=== PATIENT | male | born 1950 | race Two or more races ===

== ENCOUNTER 2025-04-07 20:02 | Inpatient (IN) | payer OTHER, MEDICARE ==
[~2025-04-07] VITALS: Ht 177.8 cm; Wt 90.5 kg
--- NOTE | 2025-04-07 20:34 | ED.PDOC ---
History of Present Illness HPI Comments 74-year-old male who came to ER via EMS for hypotension. Patient is paraplegic. For the past few days patient has been feeling dizziness and lightheadedness. Noted that he has been pressure was low. Did not have a bowel movement for 10 days. States that was normal for him. No nausea or vomiting. Upon arrival paramedics, blood pressure was 96/64 mm Hg. Patient states he was prescribed Lasix to control his blood pressure levels. It is not taking his Lasix for the past 2 days REVIEW OF SYSTEMS: General: No fever, no chills, or fatigue HEENT: No sore throat, no earache, no congestion, no neck pain. Cardiac: No chest pain. No palpitations. Lungs: No shortness of breath, no cough. GI: No nausea, no vomiting, no diarrhea, no constipation, no abdominal pain : No dysuria, frequency, or urgency. No hematuria. Musculoskeletal: No joint pain , no joint swelling, no extremity edema. Skin: No rash, no itching. Neuro: No headache, (+) dizziness, no weakness EXAM: General: Awake, alert and oriented. No acute distress. Skin: Skin in warm, dry and intact. Appropriate color for ethnicity. HEENT: The head is normocephalic and atraumatic. Conjunctivae are clear without exudates or hemorrhage. Sclera is non-icteric. EOM are intact. No signs of nystagmus. Eyelids are normal in appearance without swelling or lesions. Oral mucosa is pink and moist Neck: The neck is supple with normal range of motion. No JVD. Cardiac: Heart rate and rhythm are normal. No murmurs, gallops, or rubs are auscultated. Respiratory: No signs of respiratory distress. Lung sounds are clear in all lobes bilaterally without rales, rhonchi, or wheezes. Abdominal: Abdomen is soft, non-tender without distention. Bowel sounds are present and normoactive in all four quadrants. Extremities: Upper and lower extremities are atraumatic in appearance without deformity or edema. Neurological: The patient is awake, alert and oriented to person, place, and time with normal speech. Speech is clear. There is no facial asymmetry. Psychiatric: Appropriate mood and affect. Good judgement and insight Chief Complaint: Low Blood Pressure Time Seen by MD: 20:34 Reviewed Notes: Nurses Notes Allergies: Coded Allergies: NO KNOWN ALLERGIES (Unverified , 04/07/25) Information Source: Patient, Emergency Med Personnel Mode of Arrival: EMS Past Medical History Past Medical History (Other): Paraplegia, wheelchair/bed-bound Surgical History: Denies all surgeries Family History Family History: Reviewed,noncontributory to illness Social History Smoker: Non-Smoker Alcohol: Denies ETOH Use Drugs: Denies Drug Use Lives In: Home Was a procedure done? Was a procedure done?: No EKG EKG : Pulse Rate (adult): 75 Cardiac Rhythm: NSR Differential Dx Considerations may include: Anemia, electrolyte imbalance, dehydration, hypotension, paraplegia X-Ray, Labs, Meds, VS Vital Signs Date Time Temp Pulse Resp B/P (MAP) Pulse Ox O2 Delivery O2 Flow Rate FiO2 04/07/25 20:34 75 04/07/25 20:09 75 04/07/25 20:03 98.9 68 16 96/68 100 98.9 Lab Test 04/07/25 21:54 Range/Units White Blood Count 10.1 4.4-10.8 10^3/uL Red Blood Count 2.13 L 4.5-5.90 10^6/uL Hemoglobin 6.8 *L 13.5-17.5 g/dL Hematocrit 20.4 L 41.0-53.0 % Mean Corpuscular Volume 95.8 80.0-100.0 fL Mean Corpuscular Hemoglobin 32.0 28.0-32.0 pg Mean Corpuscular Hemoglobin Concent 33.3 32.0-36.0 g/dL Red Cell Distribution Width 15.3 H 11.8-14.3 % Platelet Count 249 140-450 10^3/uL Mean Platelet Volume 8.4 6.9-10.8 fL Neutrophils (%) (Auto) 82.7 H 37.0-80.0 % Lymphocytes (%) (Auto) 10.7 10.0-50.0 % Monocytes (%) (Auto) 4.7 0.0-12.0 % Eosinophils (%) (Auto) 1.5 0.0-7.0 % Basophils (%) (Auto) 0.4 0.0-2.0 % Neutrophils # (Auto) 8.4 1.6-8.6 10 ^3/uL Lymphocytes # (Auto) 1.1 0.4-5.4 10 ^3/uL Monocytes # (Auto) 0.5 0-1.3 10 ^3/uL Eosinophils # (Auto) 0.2 0-0.8 10 ^3/uL Basophils # (Auto) 0 0-0.2 10 ^3/uL Nucleated Red Blood Cells 0.4 % Sodium Level 140 136-145 mmol/L Potassium Level 4.4 3.5-5.1 mmol/L Chloride Level 107 98-107 mmol/L Carbon Dioxide Level 26 20-31 mmol/L Anion Gap 7 5-15 Blood Urea Nitrogen 45 H 9-23 mg/dL Creatinine 0.69 L 0.700-1.30 mg/dL Glomerular Filtration Rate Calc 98 >90 mL/min BUN/Creatinine Ratio 65.2 H 10.0-20.0 Serum Glucose 122 H 74-106 mg/dL Calcium Level 8.3 L 8.7-10.4 mg/dL Iron Level 95 65-175 ug/dL Total Iron Binding Capacity 282 250-425 ug/dL Percent Iron Saturation 33.7 20-55 % Total Bilirubin 0.2 0.2-1.0 mg/dL Direct Bilirubin < 0.1 <0.3 mg/dL Aspartate Amino Transferase (AST) 16 13-40 U/L Alanine Aminotransferase (ALT) 12 7-40 U/L Alkaline Phosphatase 63 46-116 U/L Troponin I High Sensitivity 7 </=54 ng/L B-Type Natriuretic Peptide 32.90 0-100 pg/mL Total Protein 5.5 L 5.7-8.2 g/dL Albumin 3.1 L 3.2-4.8 g/dL Vitamin B12 Level Pending Current Medications Medications (Trade) Dose Ordered Sig/Renate Route Start Time Stop Time Status Last Admin Sodium Chloride 1,000 ml @ 1,000 mls/hr Q1H ONCE IV 04/07/25 21:45 04/07/25 22:44 DC 04/07/25 21:00 Time of 1ST Reevaluation: 20:30 Reevaluation 1ST: Unchanged Patient Education/Counseling: Need For Follow Up Family Education/Counseling: No Family Present SEPSIS Sepsis Screen Date sepsis recognized/suspect: Apr 07, 2025 Time Sepsis recognized/suspect: 2002 Recent Procedure: No On Antibiotic Therapy: No Respiratory Rate >20: No Heart Rate >90: No Temp<36 C (96.8 F) or >38.3 C: No SBP <90 or MAP <65 mmHG: No New Acute Mental Status Change: No Is the patient on CPAP, BIPAP,: No Physician Orders Electrocardigram (04/07/25 20:15) Ct Ab Pel Wo Con-No Oral Or Iv (04/07/25 21:49) Type And Screen (04/07/25 22:24) Vital Signs .PER UNIT PROTOCOL (04/07/25 22:24) Administer Blood Products UD (04/07/25 22:24) Vital Signs Date Time Temp Pulse Resp B/P (MAP) Pulse Ox O2 Delivery O2 Flow Rate FiO2 04/07/25 20:34 75 04/07/25 20:09 75 04/07/25 20:03 98.9 68 16 96/68 100 98.9 Laboratory Tests Test 04/07/25 21:54 White Blood Count 10.1 10^3/uL (4.4-10.8) Medications Medications Dose Ordered Sig/Renate Route Start Time Stop Time Status Last Admin Dose Admin Sodium Chloride 1,000 ml @ 1,000 mls/hr Q1H ONCE IV 04/07/25 21:45 04/07/25 22:44 DC 04/07/25 21:00 Departure 1 Departure Time of Disposition: 22:26 Impression: Primary Impression: Severe anemia Additional Impression: Encounter for blood transfusion Disposition: ADMITTED INPATIENT Condition: Stable Comments MDM: Blood transfusion initiated in the ED Patient admitted to hospitalist service for further treatment, evaluation and monitoring. Extensive evaluation was performed in attempt to identify or rule out: (See differential diagnosis section) The following tests were ordered, and results were reviewed by me and discussed with patient: (See diagnostic results section) The following test were independently interpreted by me: EKG I reviewed and agreed with the following test results read by other providers: CT abdomen and pelvis I reviewed the following notes from the pt's past medical encounters: N/A Additional information was gathered from interviewing the following independent historians: EMS personnel, patient's significant other at bedside Discussion of management or test interpretation with external physician/other qualified health home care assistant: N/A Addressed an acute or chronic illness that poses a threat to life or bodily function: Severe anemia requiring blood transfusion, hypotension Decision regarding hospitalization or escalation of hospital level of care: Risk and benefits of admission for further treatment of patient's condition was considered. Due to patient's current clinical condition, high risk of decline and poor outcome if discharged and need for further inpatient management and monitoring, patient will be admitted to the hospital. Drug therapy requiring intensive monitoring for toxicity: PRBCs Critical Care Note Critical Care Time?: No Stability Stability form required: No Heart Score Heart Score: Heart Score Response (Comments) Value History N/A 0 EKG N/A 0 Age N/A 0 Risk Factors N/A 0 Troponin N/A 0 Total 0 I personally scribed for DILLAN MARIN MD ([email or web address]) on 04/07/25 at 20:34. Electronically submitted by Kwaku Carrasquillo ([email or web address]). DILLAN MARIN MD Apr 07, 2025 20:34
[2025-04-07] MEDS: SODIUM CHLORIDE 0.9% 1,000 ML IV ONE (21:00)
[2025-04-07 22:16] LABS: Hematocrit 20.4 % (41.0-53.0); Mean Corpuscular Hemoglobin 32.0 pg (28.0-32.0); Mean Corpuscular Volume 95.8 fL (80.0-100.0); Nucleated Red Blood Cells % 0.4 %
[2025-04-07 22:19] LABS: Potassium 4.4 mmol/L (3.5-5.1); Sodium 140 mmol/L (136-145)
[2025-04-07 22:20] VITALS: PULSE 68; RESP 12; O2SAT 98
[2025-04-07 22:20] LABS: Anion Gap 7 (5-15); Carbon Dioxide 26 mmol/L (20-31)
[2025-04-07 22:22] LABS: Calcium 8.3 mg/dL (8.7-10.4); Chloride 107 mmol/L (98-107)
[2025-04-07 22:24] LABS: Hemoglobin 6.8 g/dL (13.5-17.5)
[2025-04-07 22:25] LABS: BUN/Creatinine Ratio 65.2 (10.0-20.0)
[2025-04-07 22:26] LABS: Blood Urea Nitrogen 45 mg/dL (9-23); Glucose 122 mg/dL (74-106)
--- NOTE | 2025-04-07 23:13 | DVH ---
Exam: CT CT AB PEL WO CON-NO ORAL OR IV History: Constipation.. No bowel movement x9 days Comparison Study: None TECHNIQUE: Multidetector CT of the abdomen and pelvis was performed from lung bases to pubic symphysis. Imaging was performed without IV contrast. Axial, coronal, and sagittal multiplanar reformats were obtained from the axial data set by the technologist. RADIATION DOSE: CTDI vol 18.1 mGy. DLP 944.2 mGy.cm Findings: Limited evaluation of the solid organs in the absence of IV contrast. Lungs: Basilar atelectasis/scarring. Liver: Unremarkable. Spleen: Unremarkable. Pancreas: Unremarkable. Gallbladder: Unremarkable. Adrenals: Unremarkable Kidneys: The left kidney is absent. The right kidney is unremarkable without hydronephrosis. Pelvic Viscera: Unremarkable. Vasculature: Atherosclerotic aortoiliac calcification. Retroperitoneum: Unremarkable. Bowel: There is fecal distention of the rectum with mild stranding about the inferior rectum. There is no bowel obstruction. The appendix is normal. Musculoskeletal: Degenerative changes of the osseous structures. Osteopenia. Soft tissues: There is stranding within the subcutaneous tissues overlying the rectum. There is mild subcutaneous stranding along the lateral aspect of the upper extremities. Impression: 1. Findings suggestive of fecal impaction with possible early stercoral colitis in the appropriate clinical setting. 2. Soft tissue stranding as above, infectious/ inflammatory process cannot be excluded in the appropriate clinical setting. 3. Additional findings as detailed.
[2025-04-07] MEDS: LACTULOSE 20Gm/30ML SOLN PO ONE (23:30)
[2025-04-07] MEDS ORDERED: NITROGLYCERIN 0.4 MG SL TAB SL PRN (23:30)
[2025-04-07] MEDS: THIAMINE HCL 100 MG TAB PO ONE (23:30)
[2025-04-07] MEDS ORDERED: SODIUM CHLORIDE 0.9% 2,200 ML IV ONE (23:30)
--- NOTE | 2025-04-07 23:38 | DVHHPRES ---
History of Present Illness Resident Creating Document: GABY BRADEN History of Present Illness Shaan Dupont, 74-year-old male with a previous history of paraplegia, significant alcohol abuse, chronic leg and back pain, cervical spinal surgery, recent history of UTI (resolved) presented to the to the ER after feeling hot flashes and his blood pressure at home was ranging in 60s/30s. According to the patient's spouse" he is not like normal, something is off". However, patient is A&O x3. The patient also reports having a wound in the right buttock. The patient did not have a bowel movement since last 10 days, the reports lactulose, MiraLax help to some extent. The patient receive home health services, spinal surgery team arranged by [facility]. Now, the is the primary caregiver. He denies any chest pain, shortness of breath, fever, urinary symptoms or any other complaints Past surgical history: Cervical spine surgery Home medications: Hydrocodone, baclofen, ibuprofen Drug allergies: None Smoking: Quit many years ago. Previously taken 2 packs per day for many years Alcohol: 2-3 beers per day Drug abuse: None Code status: DNI, DNR Review of Systems Allergies: Coded Allergies: NO KNOWN ALLERGIES (Unverified , 04/07/25) Exam Vital Signs Vital Signs Date Time Temp Pulse Resp B/P (MAP) Pulse Ox O2 Delivery O2 Flow Rate FiO2 04/07/25 20:34 75 04/07/25 20:03 98.9 16 96/68 100 98.9 Exam Pt is lying on bed General Appearance: Alert, Oriented X3, Cooperative, Mild distress HEENT: Atraumatic, Mucous membranes moist/pink Respiratory: Clear to auscultation, Normal air movement, No added sounds Cardiovascular: Regular rate, Normal S1, Normal S2, No murmurs Abdominal/ : Active bowel sounds, Soft, no distention, no tenderness Rectal exam: Patient declined Extremities: No edema, Normal pulses, No tenderness/swelling Skin: Ulcer at the right buttock Neuro: Normal speech, sensorimotor deficits none Psych/Mental Status: Mental status NL, Mood NL Nurse was there as pulverizing and sifting operator during examination Labs/Xrays Labs Test 04/07/25 21:54 Range/Units White Blood Count 10.1 4.4-10.8 10^3/uL Red Blood Count 2.13 L 4.5-5.90 10^6/uL Hemoglobin 6.8 *L 13.5-17.5 g/dL Hematocrit 20.4 L 41.0-53.0 % Mean Corpuscular Volume 95.8 80.0-100.0 fL Mean Corpuscular Hemoglobin 32.0 28.0-32.0 pg Mean Corpuscular Hemoglobin Concent 33.3 32.0-36.0 g/dL Red Cell Distribution Width 15.3 H 11.8-14.3 % Platelet Count 249 140-450 10^3/uL Mean Platelet Volume 8.4 6.9-10.8 fL Neutrophils (%) (Auto) 82.7 H 37.0-80.0 % Lymphocytes (%) (Auto) 10.7 10.0-50.0 % Monocytes (%) (Auto) 4.7 0.0-12.0 % Eosinophils (%) (Auto) 1.5 0.0-7.0 % Basophils (%) (Auto) 0.4 0.0-2.0 % Neutrophils # (Auto) 8.4 1.6-8.6 10 ^3/uL Lymphocytes # (Auto) 1.1 0.4-5.4 10 ^3/uL Monocytes # (Auto) 0.5 0-1.3 10 ^3/uL Eosinophils # (Auto) 0.2 0-0.8 10 ^3/uL Basophils # (Auto) 0 0-0.2 10 ^3/uL Nucleated Red Blood Cells 0.4 % Sodium Level 140 136-145 mmol/L Potassium Level 4.4 3.5-5.1 mmol/L Chloride Level 107 98-107 mmol/L Carbon Dioxide Level 26 20-31 mmol/L Anion Gap 7 5-15 Blood Urea Nitrogen 45 H 9-23 mg/dL Creatinine 0.69 L 0.700-1.30 mg/dL Glomerular Filtration Rate Calc 98 >90 mL/min BUN/Creatinine Ratio 65.2 H 10.0-20.0 Serum Glucose 122 H 74-106 mg/dL Calcium Level 8.3 L 8.7-10.4 mg/dL Troponin I High Sensitivity 7 </=54 ng/L B-Type Natriuretic Peptide 32.90 0-100 pg/mL SEPSIS Sepsis Screen Date sepsis recognized/suspect: Apr 07, 2025 Time Sepsis recognized/suspect: 2002 Recent Procedure: No On Antibiotic Therapy: No Respiratory Rate >20: No Heart Rate >90: No Temp<36 C (96.8 F) or >38.3 C: No SBP <90 or MAP <65 mmHG: No New Acute Mental Status Change: No Is the patient on CPAP, BIPAP,: No Physician Orders Electrocardigram (04/07/25 20:15) Ct Ab Pel Wo Con-No Oral Or Iv (04/07/25 21:49) Packedcells -Active Bleeding (04/07/25 22:24) Type And Screen (04/07/25 22:24) Vital Signs .PER UNIT PROTOCOL (04/07/25 22:24) Administer Blood Products UD (04/07/25 22:24) Vital Signs Date Time Temp Pulse Resp B/P (MAP) Pulse Ox O2 Delivery O2 Flow Rate FiO2 04/07/25 20:34 75 04/07/25 20:09 75 04/07/25 20:03 98.9 68 16 96/68 100 98.9 Laboratory Tests Test 04/07/25 21:54 White Blood Count 10.1 10^3/uL (4.4-10.8) Medications Medications Dose Ordered Sig/Renate Route Start Time Stop Time Status Last Admin Dose Admin Sodium Chloride 1,000 ml @ 1,000 mls/hr Q1H ONCE IV 04/07/25 21:45 04/07/25 22:44 DC 04/07/25 21:00 1,000 MLS/HR Assessment/Plan Assessment/Plan Septic shock secondary to acute colitis Constipation -abdomen CT: Colitis, impacted stool -IV bolus fluid -Levophed (map below 65) -IV ceftriaxone and IV metronidazole -Lactulose given for constipation -manual disimpaction declined by the patient -consider enema CXR ordered, pending Acute severe anemia (hemoglobin 6.8) likely due to GI blood loss? -per rectal exam declined -blood transfusion -IV fluid -monitor H&H -Consider GI consult Ulcer in the gluteal region -wound consult -wound culture -continue IV antibiotics GI prophylaxis: Pantoprazole DVT prophylaxis: lovenox held due to anemia, SCDs Diet: Regular Goals of care discussed with the patient for more than 27 minutes: Full code status Case discussed with Dr. Mcqueen, patient and RN Plan discussed with: Patient, Spouse Date of Service: Apr 07, 2025 Billing Provider: ROLY MCQUEEN MD Common Visit Codes: 63209-ZSTDNLT INP/OBS CARE (HIGH) Secondary Visit Codes: [id number] CARE PLAN 30 MINUTES GABY BRADEN RESIDENT Apr 07, 2025 23:38 CYRIL PANIAGUA RESIDENT Apr 08, 2025 02:03 ROLY MCQUEEN MD Apr 08, 2025 11:42
[2025-04-07] MEDS: NOREPINEPHRINE 8 MG/250ML KIT 250 ML IV ONE (23:54)
[2025-04-08] VITALS (54 sets, daily range): BP systolic 77–137; BP diastolic 44–70; PULSE 60–91; RESP 11–24; TEMP 97.7–98.7; O2SAT 75–100
[2025-04-08] MEDS: SODIUM CHLORIDE 0.9% 1,000 ML IV ONE
[2025-04-08 00:18] LABS: Iron 95.0 ug/dL (65-175)
[2025-04-08 00:21] LABS: Total Iron Binding Capacity 282.0 ug/dL (250-425)
[2025-04-08 00:22] LABS: Alanine Aminotransferase 12 U/L (7-40); Albumin 3.1 g/dL (3.2-4.8); Alkaline Phosphatase 63 U/L (46-116); Bilirubin, Direct < 0.1 mg/dL (<0.3); Bilirubin, Total 0.2 mg/dL (0.2-1.0); Total Protein 5.5 g/dL (5.7-8.2)
[2025-04-08 00:24] LABS: Amphetamine Screen, Urine Neg (NEGATIVE); Opiate Scree,Urine Pos (NEGATIVE)
[2025-04-08 00:28] LABS: Urine Protein, UAD TRACE (Negative); Urine WBC Clumps PRESENT /hpf (None Seen)
[2025-04-08 00:39] LABS: Barbiturate Scree,Urine Neg (NEGATIVE); Benzodiazephine Screen, Urine Neg (NEGATIVE); Cannabinoid Screen, Urine Neg (NEGATIVE); Cocaine Screen, Urine Neg (NEGATIVE); Phencyclidine Screen, Urine Neg (NEGATIVE)
[2025-04-08 00:44] LABS: Hematocrit 20.6 % (41.0-53.0)
[2025-04-08] MEDS: NOREPINEPHRINE 8 MG/250ML KIT 250 ML IV SCH (00:53)
[2025-04-08 00:54] LABS: Hemoglobin 6.9 g/dL (13.5-17.5)
[2025-04-08] MEDS: MORPHINE SULFATE INJ 2 MG/ml SYRG IV PRN (01:38)
--- NOTE | 2025-04-08 05:22 | DVH ---
CHEST RADIOGRAPH Indication: Sepsis Technique: Single frontal view of the chest was obtained COMPARISON: None FINDINGS: Lines and Tubes: None Lungs: Increased interstitial prominence. This may represent pulmonary vascular congestion and/or viral pneumonia. Pleura: No effusion. No pneumothorax. Cardiomediastinal contours: Unremarkable Bones: Unremarkable IMPRESSION: Increased interstitial prominence. This may represent pulmonary vascular congestion and/or viral pneumonia.
[2025-04-08 08:46] LABS: Hematocrit 24.3 % (41.0-53.0); Hemoglobin 8.2 g/dL (13.5-17.5)
--- NOTE | 2025-04-08 08:57 | ECG ---
[facility] Test Date: 2025-04-07 Test Time: 20:09:03 Pat Name: AGNES RAMIREZ Department: ED Room: 0216T Gender: M Client Development Consultant: MARIO : 1950 Requested By: EMERGENCY EMERGENCY Order Number: [id number] Reading MD: Javier Chambers Measurements Intervals [place] Rate: 75 P: 71 [place]: 58 QRS: 23 QRSD: 95 T: -14 QT: 371 QTc: 415 Interpretive Statements Sinus rhythm Short [place] interval Posterior infarct, old Borderline repolarization abnormality Electronically Signed On 04-09-2025 17:57:07 PST by Javier Chambers Please click the below link to view image of tracing.
[2025-04-08 09:40] LABS: INR 0.98 (0.9-1.15); Partial Thromboplastin Time 24.5 SEC (24.5-34.5); Prothrombin Time 10.4 sec (9.3-11.8)
[2025-04-08] MEDS: LACTULOSE 20Gm/30ML SOLN PO SCH ×2 (10:00→22:51)
[2025-04-08] MEDS: HYDROcodone-ACET 10/325MG TAB PO ONE (10:06)
[2025-04-08] MEDS: CYANOCOBALAMIN 500 MCG TAB PO SCH (10:06)
[2025-04-08] MEDS: PANTOPRAZOLE 40 MG/10 ML VIAL INJ IV SCH (10:38)
[2025-04-08] MEDS: PIPERACILLIN-TAZOB 3.375GM 100 ML IV ONE (13:45)
[2025-04-08] MEDS: SODIUM CHLORIDE 0.9% 500 ML IV ONE ×2 (14:45→16:45)
--- NOTE | 2025-04-08 15:48 | DVHCONRES ---
Date Seen: Apr 08, 2025 Resident Creating Document: WHITNEY BORRERO History of Present Illness Shaan Dupont, 74-year-old male with a previous history of paraplegia, significant alcohol abuse, chronic leg and back pain, cervical spinal surgery, recent history of UTI (resolved) presented to the to the ER after feeling hot flashes and his blood pressure at home was ranging in 60s/30s. According to the patient's spouse" he is not like normal, something is off". However, patient is A&O x3. The patient also reports having a wound in the right buttock. The patient did not have a bowel movement since last 10 days, the reports lactulose, MiraLax help to some extent. The patient receive home health services, [facility] Now, the is the primary caregiver. He denies any chest pain, shortness of breath, fever, urinary symptoms or any other complaints Past surgical history: Cervical spine surgery Home medications: Hydrocodone, baclofen, ibuprofen Drug allergies: None Smoking: Quit many years ago. Previously taken 2 packs per day for many years Alcohol: 2-3 beers per day Drug abuse: None Code status: DNI, DNR Patient seen and examined, reports taking ibuprofen. Counseled regarding avoidance of ibuprofen. Upper endoscopy tomorrow. Family History: Chronic obstructive pulmonary disease Allergies: Coded Allergies: NO KNOWN ALLERGIES (Unverified , 04/07/25) Current Medications Current Medications Medications (Trade) Dose Ordered Sig/Renate Route PRN Reason Start Time Stop Time Status Last Admin Nitroglycerin (Ntrostat Sublingual) 0.4 mg Q5MINP PRN SL FOR CHEST PAIN 04/07/25 23:30 04/08/25 10:39 DC Morphine Sulfate 2 mg Q30M PRN IV FOR CHEST PAIN 04/07/25 23:30 04/08/25 10:39 DC 04/08/25 05:47 Lactulose 30 ml DAILY PO 04/08/25 10:00 Ceftriaxone Sodium 50 ml @ 100 mls/hr DAILY@2100 IV 04/08/25 21:00 04/08/25 10:39 DC Metronidazole 100 ml @ 100 mls/hr Q8HR IV 04/08/25 06:00 04/08/25 10:39 DC 04/08/25 06:35 Cyanocobalamin (Vitamin B-12) 500 mcg DAILY PO 04/08/25 10:00 04/08/25 10:06 Norepinephrine Bitartrate 250 ml @ 3.75 mls/hr Q24H IV 04/08/25 00:45 04/08/25 00:53 Pantoprazole Sodium (Protonix) 40 mg BID IV 04/08/25 10:00 04/08/25 10:38 Piperacillin Sod/ Tazobactam Sod 100 ml @ 25 mls/hr Q8HR IV 04/08/25 22:00 Vital Signs Vital Signs Date Time Temp Pulse Resp B/P (MAP) Pulse Ox O2 Delivery O2 Flow Rate FiO2 04/08/25 15:15 64 15 114/63 (80) 100 04/08/25 15:07 Nasal Cannula* 2 28 04/08/25 12:15 98.1 98.1 Physical Exam Patient lying in bed, in no acute distress General: Well-built, afebrile, palor, mucosae are moist Cardiovascular: Regular S1 and S2. No murmurs, gallops or rubs. No JVD elevation. No pedal edema Respiratory: Normal B/L air entry on room air. Clear lung sounds on auscultation Abdomen: Soft, nontender, nondistended, normoactive bowel sounds, no rebound tenderness, no organomegaly, no masses Genitourinary: Deferred Psych/Mental Status: A/Ox3 Labs/Diagnostic Data Labs Test 04/08/25 08:31 04/08/25 00:00 04/07/25 23:45 04/07/25 21:54 Range/Units Hemoglobin 8.2 #L 13.5-17.5 g/dL Hematocrit 24.3 #L 41.0-53.0 % Prothrombin Time 10.4 9.3-11.8 sec Prothrombin Time INR 0.98 0.9-1.15 Activated Partial Thromboplast Time 24.5 24.5-34.5 SEC Ferritin 30.1 22-322 ng/mL Folic Acid 9.88 >5.38 ng/mL Lactic Acid Level 1.1 0.4-2.0 mmol/L Plasma/Serum Blood Alcohol < 3.0 <10 mg/dL Urine Color Colorless Yellow Urine Clarity Turbid H Clear Urine pH 5.5 5.0-9.0 Urine Specific [place] 1.021 1.001-1.035 Urine Protein Trace H Negative Urine Ketones Negative Negative Urine Blood Negative Negative /uL Urine Nitrite 2+ H Negative Urine Bilirubin Negative Negative Urine Urobilinogen Normal Negative mg/dL Urine Leukocyte Esterase 2+ Negative /uL Urine RBC 22 0 - 3 /hpf Urine WBC Clumps Present None Seen /hpf Urine Microscopic WBC 483 H 0-3 /HPF Urine Squamous Epithelial Cells Few <5 /hpf Urine Bacteria Many H None Seen /hpf Urine Glucose Normal Normal mg/dL Urine Opiates Screen Pos NEGATIVE Urine Fentanyl Screen Neg NEGATIVE Urine Barbiturates Screen Neg NEGATIVE Urine Phencyclidine Screen Neg NEGATIVE Urine Amphetamines Screen Neg NEGATIVE Urine Benzodiazepines Screen Neg NEGATIVE Urine Cocaine Screen Neg NEGATIVE Urine Cannabinoids Screen Neg NEGATIVE White Blood Count 10.1 4.4-10.8 10^3/uL Red Blood Count 2.13 L 4.5-5.90 10^6/uL Mean Corpuscular Volume 95.8 80.0-100.0 fL Mean Corpuscular Hemoglobin 32.0 28.0-32.0 pg Mean Corpuscular Hemoglobin Concent 33.3 32.0-36.0 g/dL Red Cell Distribution Width 15.3 H 11.8-14.3 % Platelet Count 249 140-450 10^3/uL Mean Platelet Volume 8.4 6.9-10.8 fL Neutrophils (%) (Auto) 82.7 H 37.0-80.0 % Lymphocytes (%) (Auto) 10.7 10.0-50.0 % Monocytes (%) (Auto) 4.7 0.0-12.0 % Eosinophils (%) (Auto) 1.5 0.0-7.0 % Basophils (%) (Auto) 0.4 0.0-2.0 % Neutrophils # (Auto) 8.4 1.6-8.6 10 ^3/uL Lymphocytes # (Auto) 1.1 0.4-5.4 10 ^3/uL Monocytes # (Auto) 0.5 0-1.3 10 ^3/uL Eosinophils # (Auto) 0.2 0-0.8 10 ^3/uL Basophils # (Auto) 0 0-0.2 10 ^3/uL Nucleated Red Blood Cells 0.4 % Sodium Level 140 136-145 mmol/L Potassium Level 4.4 3.5-5.1 mmol/L Chloride Level 107 98-107 mmol/L Carbon Dioxide Level 26 20-31 mmol/L Anion Gap 7 5-15 Blood Urea Nitrogen 45 H 9-23 mg/dL Creatinine 0.69 L 0.700-1.30 mg/dL Glomerular Filtration Rate Calc 98 >90 mL/min BUN/Creatinine Ratio 65.2 H 10.0-20.0 Serum Glucose 122 H 74-106 mg/dL Calcium Level 8.3 L 8.7-10.4 mg/dL Iron Level 95 65-175 ug/dL Total Iron Binding Capacity 282 250-425 ug/dL Percent Iron Saturation 33.7 20-55 % Total Bilirubin 0.2 0.2-1.0 mg/dL Direct Bilirubin < 0.1 <0.3 mg/dL Aspartate Amino Transferase (AST) 16 13-40 U/L Alanine Aminotransferase (ALT) 12 7-40 U/L Alkaline Phosphatase 63 46-116 U/L Troponin I High Sensitivity 7 </=54 ng/L B-Type Natriuretic Peptide 32.90 0-100 pg/mL Total Protein 5.5 L 5.7-8.2 g/dL Albumin 3.1 L 3.2-4.8 g/dL Vitamin B12 Level 269 211-911 pg/mL Assessment Septic shock likely secondary to colitis Fecal impaction Likely peptic ulcer disease Acute blood loss anemia likely secondary to above status post 1 RBC transfusion Acute urinary tract infection Alcohol dependence Protein malnutrition CT abdomen shows findings suggestive of fecal infection with possible early stercoral colitis in an appropriate clinical setting Soft tissue stranding as above. Plan/Recommendation Given that the patient never had EGD/colonoscopy, anemia requiring blood loss, elevated BUN a out of proportion to creatinine, we will schedule the patient for upper EGD 04/09/2025. NPO after midnight. Continue IV fluids, IV Zosyn, IV pressors Monitor H&H twice daily Fleet enema ordered, we will consider fecal disimpaction if enema does not work Lactulose increased to 30 mL b.i.d. Continue Protonix 40 mg IV b.i.d. along with Carafate Avoid NSAIDs/ketorolac Plan discussed with patient in which all questions have been answered Case discussed with Dr. Beverly Plan discussed with: Patient WHITNEY BORRERO RESIDENT Apr 08, 2025 15:48
[2025-04-08] MEDS: FLEET ENEMA(ADULT) 135 ML PR ONE (17:04)
[2025-04-08] MEDS: SUCRALFATE 1 GM/10 ML ORAL SUSP PO SCH (17:12)
--- NOTE | 2025-04-08 18:21 | DVHPNRES ---
Progress Note Date Seen: Apr 08, 2025 Resident Creating Document: LEA HENDERSON RESIDENT Medical Necessity Reason Pt with a Central, PICC or Fol: No Subjective Review of Systems Shaan Dupont, 74-year-old male with a previous history of paraplegia, significant alcohol abuse, chronic leg and back pain, cervical spinal surgery, recent history of UTI (resolved) presented to the to the ER after feeling hot flashes and his blood pressure at home was ranging in 60s/30s. According to the patient's spouse" he is not like normal, something is off". However, patient is A&O x3. The patient also reports having a wound in the right buttock. The patient did not have a bowel movement since last 10 days, the reports lactulose, MiraLax help to some extent. The patient receive home health services, spinal surgery team arranged by [facility]. Now, the is the primary caregiver. He denies any chest pain, shortness of breath, fever, urinary symptoms or any other complaints. As per patient patient had hot flashes, was feeling disoriented, states he did not lose consciousness and he did have trouble urinating since 2 days. Patient also was constipated since 9 days. Past surgical history: Cervical spine surgery Home medications: Hydrocodone, baclofen, ibuprofen Drug allergies: None Smoking: Quit many years ago. Previously taken 2 packs per day for many years Alcohol: 2-3 beers per day Drug abuse: None Code status: DNI, not DNR 04/08/2025: patient seen in the ER. Patient is on 2 L oxygen, denies any home oxygen. Patient today complains of generalized pain. Urinalysis showed positive for UTI. Urine culture ordered. GI consult was placed, monitored H&H, started IV Zosyn, patient was weaned off Levophed. Patient can be downgraded to tele. Podiatry consult placed for right foot toe ulcer. Patient is DNI only. I signed the paperwork for DNA not DNR. Objective vital signs Vital Sign Date Time Temp Pulse Resp B/P (MAP) Pulse Ox O2 Delivery O2 Flow Rate FiO2 04/08/25 17:15 71 13 100 04/08/25 17:07 Nasal Cannula* 2 28 04/08/25 16:00 98.1 98.1 Total Intake and Output 04/07/25 04/07/2504/08/25 15:00 23:00 07:00 Intake Total 1314.312 ml Balance 1314.312 ml medications Current Medications Medications Dose Ordered Sig/Renate Route Start Time Stop Time Status Last Admin Dose Admin Cyanocobalamin 500 mcg DAILY PO 04/08/25 10:00 04/08/25 10:06 500 MCG Norepinephrine Bitartrate 250 ml @ 3.75 mls/hr Q24H IV 04/08/25 00:45 04/08/25 00:53 7.5 MLS/HR Pantoprazole Sodium 40 mg BID IV 04/08/25 10:00 04/08/25 10:38 40 MG Piperacillin Sod/ Tazobactam Sod 100 ml @ 25 mls/hr Q8HR IV 04/08/25 22:00 Lactulose 30 ml BID PO 04/08/25 22:00 Sucralfate 1 gm TID@0600,1130,2200 PO 04/08/25 15:45 04/08/25 17:12 1 GM Acetaminophen 650 mg Q6HP PRN PO 04/08/25 16:45 Examination General: Patient alert and oriented in person, place and time. Patient following commands. HEENT: Normocephalic, atraumatic, moist mucous membranes Respiratory/pulmonary: Clear lungs bilaterally, vesicular murmurs present in almost all lung alfaro, no associated crackles or wheezes. Cardiovascular: Normal heart sounds S1 and S2 with no associated murmurs Abdomen: rectal exam declined, no tenderness on palpation of abdomen. Extremities: There is no peripheral edema present at the lower extremities. Peripheral Pulses: 3+ Radial (R). 3+ Radial (L). 3+ Dorsalis pedis (R). 3+ Dorsalis pedis(L) Skin: sacral ulcer stage 3-4 present on admission, right big toe ulcer Neurological: Paraplegic laboratory and microbiology Laboratory Tests 04/08/25 08:31 04/07/25 21:54 Test 04/07/25 21:54 Range/Units Serum Glucose 122 H 74-106 mg/dL Problem List/Assessment/Plan Problem List/Assessment/Plan Septic shock likely due to UTI - IV bolus fluids given - discontinued Levophed - IV Zosyn Pneumonia Gram-positive vs Gram-negative - CXR ordered showed Increased interstitial prominence. This may represent pulmonary vascular congestion and/or viral pneumonia. - IV Zosyn Complicated UTI - urinalysis positive for UTI - urine culture ordered - IV Zosyn Acute severe anemia possible GI bleed Slow transit Constipation - abdomen CT: Colitis, impacted stool -per rectal exam declined -blood transfusion 1 PRBC given -IV fluid - monitor H&H - GI consulted possible GI bleed - possible EGD tomorrow - Fleet enema ordered - Lactulose given for constipation - manual disimpaction declined by the patient History of for paraplegia Ulcer in the gluteal region right foot toe ulcer - podiatry consult placed -wound consult -wound culture -continue IV antibiotics Alcohol abuse disorder - patient counseled on cessation of alcohol for more than 18 minutes. GI prophylaxis: Pantoprazole DVT prophylaxis: lovenox held due to anemia, SCDs Diet: Regular Goals of care discussed with the patient for more than 29 minutes: Full code status Case discussed with Dr. Uribe, patient and RN Plan discussed with: Patient, Spouse My Orders My Orders Orders - LEA HENDERSON Procedure Category Date Status Time * [facility] Clinical Manager CONS 04/08/25 Transmitted 06:39 *Podiatry Consult CONS 04/08/25 Transmitted [facility]) 12:25 * Tank Driver CONS 04/08/25 Transmitted Consult Date of Service: Apr 08, 2025 Billing Provider: PAOLA URIBE MD Common Visit Codes: [id number] INP/OBS CARE(HIGH) LEA HENDERSON Apr 08, 2025 18:20 PAOLA URIBE MD Apr 08, 2025 21:44
[2025-04-08 18:45] LABS: Hemoglobin 7.8 g/dL (13.5-17.5)
[2025-04-08 18:47] LABS: Hematocrit 22.3 % (41.0-53.0)
[2025-04-08 19:10] LABS: COVID19 ANTIGEN SOFIA FIA NEGATIVE (NEGATIVE)
[2025-04-08] MEDS: PIPERACILLIN-TAZOB 3.375GM 100 ML IV SCH (22:00)
[2025-04-09] VITALS (8 sets, daily range): BP systolic 108–115; BP diastolic 60–70; PULSE 61–67; RESP 11–19; TEMP 98.3–98.8; O2SAT 96–100
[2025-04-09 05:27] LABS: Hemoglobin 7.5 g/dL (13.5-17.5)
[2025-04-09 05:30] LABS: Hematocrit 21.2 % (41.0-53.0); Mean Corpuscular Hemoglobin 33.7 pg (28.0-32.0); Mean Corpuscular Volume 95.4 fL (80.0-100.0); Nucleated Red Blood Cells % 0.0 %
[2025-04-09] MEDS ORDERED: SODIUM CHLORIDE LOCK 10 ML ONE (10:19)
[2025-04-09 10:55] LABS: Alanine Aminotransferase 10 U/L (7-40); Albumin 3.3 g/dL (3.2-4.8); Alkaline Phosphatase 65 U/L (46-116); Anion Gap 9 (5-15); BUN/Creatinine Ratio 42.9 (10.0-20.0); Carbon Dioxide 25 mmol/L (20-31); Glucose 103 mg/dL (74-106); Potassium 4.1 mmol/L (3.5-5.1); Sodium 145 mmol/L (136-145); Total Protein 5.7 g/dL (5.7-8.2)
[2025-04-09 10:56] LABS: Bilirubin, Total 0.3 mg/dL (0.2-1.0); Blood Urea Nitrogen 24 mg/dL (9-23); Calcium 8.6 mg/dL (8.7-10.4); Chloride 111 mmol/L (98-107)
[2025-04-09] MEDS: LIDOCAINE VISCOUS 2% 15ML UD ONE (15:48)
[2025-04-09] MEDS: MIDAZOLAM HCL 5 MG/ML-1ML VIAL ONE (15:48)
[2025-04-09] MEDS: fentaNYL CITRATE 100 MCG/2 ML VL ONE (15:48)
[2025-04-09] MEDS: diphenhydrAMINE HCL 50 MG/1 ML VL ONE (15:48)
--- NOTE | 2025-04-09 16:02 | DVHOP2 ---
Operative Report DATE OF OPERATION: 04/09/25 PROCEDURE: Upper Endoscopy with biopsy. PREOPERATIVE INDICATION: The patient is a 74 -year-old male undergoing endoscopy for anemia and occult positive stool POSTOPERATIVE DIAGNOSES: 1. Moderate linear antral gastritis with pre-pyloric antral gastric erosions and some scarring from previous ulcer disease 2. [id number] duodenitis with duodenal erosions otherwise normal examination up to the 2nd and 3rd part of the duodenum PROCEDURE PERFORMED BY: David Beverly GI NURSE: Shahla SCOPE: Olympus videoendoscope. ASA CLASS: 3 PREOPERATIVE MEDICATIONS: Versed 2 mg, Fentanyl 50 mcg, Benadryl 50 mg I administered moderate sedation throughout this _8_ minutes procedure. An independent trained observer pushed medications at my direction, and monitored the patient's level of consciousness and physiological status throughout. PROCEDURE IN DETAIL: After obtaining an informed consent, the patient was placed on left lateral decubitus position. The patient was then sedated with the above medications. A bite block was placed between his teeth. The endoscope was then passed through the oropharynx, into the esophagus, and through the stomach and pylorus up to the second and third part of the duodenum. The endoscope was then withdrawn. The 2nd and 3rd part of the duodenum were normal and the duodenal bulb and postbulbar area showed moderate duodenitis There were multiple superficial duodenal erosions and tiny ulcers. Duodenal biopsies were obtained The pre-pyloric area antrum and body showed moderate linear antral gastritis with some pre-pyloric antral gastric erosions and scarring from previous ulcer disease On retroflexion the fundus cardia and angularis were normal. There was no fresh or old blood in the upper GI tract. Gastric biopsies were obtained. The endoscope was then withdrawn into the distal esophagus where he had a slightly irregular squamocolumnar junction but no significant erosive esophagitis The remaining distal and proximal esophagus and oropharynx were unremarkable The patient tolerated the procedure well without difficulty. COMPLICATIONS : None SPECIMENS: Duodenal biopsies Gastric biopsies DISPOSITION: Transfer back to the floor Stable PLAN: 1. Await for biopsy result 2. Will place pt on Protonix 40 mg bid IV 3. Carafate suspension 1 g p.o. 4 times a day 3. DC aspirin NSAIDs smoking alcohol 5. Resume GI soft diet advance as tolerated 6. Monitor labs DAVID BEVERLY MD Apr 09, 2025 16:02
[2025-04-09] MEDS: SUCRALFATE 1 GM/10 ML ORAL SUSP PO SCH (17:04)
--- NOTE | 2025-04-09 17:37 | DVHPNRES ---
Progress Note Date Seen: Apr 09, 2025 Resident Creating Document: LEA HENDERSON RESIDENT Medical Necessity Reason Pt with a Central, PICC or Fol: No Subjective Review of Systems Shaan Dupont, 74-year-old male with a previous history of paraplegia, significant alcohol abuse, chronic leg and back pain, cervical spinal surgery, recent history of UTI (resolved) presented to the to the ER after feeling hot flashes and his blood pressure at home was ranging in 60s/30s. According to the patient's spouse" he is not like normal, something is off". However, patient is A&O x3. The patient also reports having a wound in the right buttock. The patient did not have a bowel movement since last 10 days, the reports lactulose, MiraLax help to some extent. The patient receive home health services, spinal surgery team arranged by [facility]. Now, the is the primary caregiver. He denies any chest pain, shortness of breath, fever, urinary symptoms or any other complaints. As per patient patient had hot flashes, was feeling disoriented, states he did not lose consciousness and he did have trouble urinating since 2 days. Patient also was constipated since 9 days. Past surgical history: Cervical spine surgery Home medications: Hydrocodone, baclofen, ibuprofen Drug allergies: None Smoking: Quit many years ago. Previously taken 2 packs per day for many years Alcohol: 2-3 beers per day Drug abuse: None Code status: DNI, not DNR 04/08/2025: patient seen in the ER. Patient is on 2 L oxygen, denies any home oxygen. Patient today complains of generalized pain. Urinalysis showed positive for UTI. Urine culture ordered. GI consult was placed, monitored H&H, started IV Zosyn, patient was weaned off Levophed. Patient can be downgraded to tele. Podiatry consult placed for right foot toe ulcer. Patient is DNI only. I signed the paperwork for DNA not DNR. 04/09/25: Patient seen in the ER. Patient is on 2 L oxygen. patient today complained of seeing hazy colors. Feeling confused. Patient had a dark tarry stool with Fleet enema. EGD done today which showed 1. Moderate linear antral gastritis with pre-pyloric antral gastric erosions and some scarring from previous ulcer disease . [id number] duodenitis with duodenal erosions otherwise normal examination up to the 2nd and 3rd part of the duodenum. Monitoring H&H Objective vital signs Vital Sign Date Time Temp Pulse Resp B/P (MAP) Pulse Ox O2 Delivery O2 Flow Rate FiO2 04/09/25 16:33 Nasal Cannula 2.0 100 04/09/25 16:33 61 12 105/53 (70) 100 04/09/25 16:04 97.9 97.9 Total Intake and Output 04/08/25 04/08/25 04/09/25 14:59 22:59 06:59 Intake Total 22.50 ml 2600 ml 100 ml Output Total 750 ml Balance 22.50 ml 1850 ml 100 ml medications Current Medications Medications Dose Ordered Sig/Renate Route Start Time Stop Time Status Last Admin Dose Admin Cyanocobalamin 500 mcg DAILY PO 04/08/25 10:00 04/08/25 10:06 500 MCG Pantoprazole Sodium 40 mg BID IV 04/08/25 10:00 04/09/25 10:14 40 MG Piperacillin Sod/ Tazobactam Sod 100 ml @ 25 mls/hr Q8HR IV 04/08/25 22:00 04/09/25 17:05 25 MLS/HR Lactulose 30 ml BID PO 04/08/25 22:00 Acetaminophen 650 mg Q6HP PRN PO 04/08/25 16:45 Sucralfate 1 gm QIDACHS PO 04/09/25 17:00 04/09/25 17:04 1 GM Iron Sucrose 110 ml @ 110 mls/hr DAILY@1200 IV 04/10/25 12:00 04/13/25 13:00 Examination General: Patient alert and oriented in person, place and time. Patient following commands. HEENT: Normocephalic, atraumatic, moist mucous membranes Respiratory/pulmonary: Clear lungs bilaterally, vesicular murmurs present in almost all lung alfaro, no associated crackles or wheezes. Cardiovascular: Normal heart sounds S1 and S2 with no associated murmurs Abdomen: rectal exam declined, no tenderness on palpation of abdomen. Extremities: There is no peripheral edema present at the lower extremities. Peripheral Pulses: 3+ Radial (R). 3+ Radial (L). 3+ Dorsalis pedis (R). 3+ Dorsalis pedis(L) Skin: sacral ulcer stage 3-4 present on admission, right big toe ulcer laboratory and microbiology Laboratory Tests 04/09/25 04:48 Test 04/09/25 04:48 Range/Units Serum Glucose 103 74-106 mg/dL Microbiology Date/Time Source Procedure Growth Status 04/08/25 17:20 Buttock Gram Stain - Final Resulted 04/08/25 17:20 Buttock Wound Culture - Preliminary Resulted 04/08/25 12:31 Voided Urine Urine Culture - Preliminary Resulted 04/08/25 00:18 Blood Blood Culture - Preliminary NO GROWTH AFTER 24 HOURS OF INCUBATION. Resulted Problem List/Assessment/Plan Problem List/Assessment/Plan Septic shock likely due to UTI - IV bolus fluids given - discontinued Levophed - IV Zosyn Pneumonia Gram-positive vs Gram-negative - CXR ordered showed Increased interstitial prominence. This may represent pulmonary vascular congestion and/or viral pneumonia. - IV Zosyn Complicated UTI - urinalysis positive for UTI - urine culture ordered - IV Zosyn Acute severe anemia possible GI bleed Slow transit Constipation - abdomen CT: Colitis, impacted stool -per rectal exam declined -blood transfusion 1 PRBC given -IV fluid - monitor H&H - GI consulted possible GI bleed - EGD done today which showed Moderate linear antral gastritis with pre-pyloric antral gastric erosions and some scarring from previous ulcer disease . Dtii-zg-jtxundso duodenitis with duodenal erosions otherwise normal examination up to the 2nd and 3rd part of the duodenum - Fleet enema ordered - Lactulose given for constipation History of for paraplegia Ulcer in the gluteal region right foot toe ulcer - podiatry consult placed -wound consult -wound culture -continue IV antibiotics Alcohol abuse disorder - patient counseled on cessation of alcohol for more than 18 minutes. GI prophylaxis: Pantoprazole DVT prophylaxis: lovenox held due to anemia, SCDs Diet: Regular Goals of care discussed with the patient for more than 29 minutes: Full code status Case discussed with Dr. Uribe, patient and RN Plan discussed with: Patient My Orders My Orders Orders - LEA HENDERSON RESIDENT Procedure Category Date Status Time Apply Z-Guard TYRELL 04/09/25 In Process 15:21 Date of Service: Apr 09, 2025 Billing Provider: PAOLA URIBE MD Common Visit Codes: [id number] INP/OBS CARE(HIGH) LEA HENDERSON RESIDENT Apr 09, 2025 17:36 PAOLA URIBE MD Apr 09, 2025 18:04
[2025-04-09] MEDS: IRON SUCROSE COMPLEX 110 ML IV ONE (18:52)
[2025-04-09] MEDS: ACETAMINOPHEN 325 MG TAB PO PRN (21:38)
[2025-04-10] VITALS (8 sets, daily range): BP systolic 99–154; BP diastolic 47–96; PULSE 59–89; RESP 16–20; TEMP 98–98.7; O2SAT 97–100
[2025-04-10] MEDS: PIPERACILLIN-TAZOB 3.375GM 100 ML IV SCH ×2 (01:04→23:12)
[2025-04-10] MEDS: HYDROcodone-ACET 5/325MG TAB PO ONE (04:59)
[2025-04-10 06:05] LABS: Hematocrit 21.6 % (41.0-53.0); Hemoglobin 7.3 g/dL (13.5-17.5); Mean Corpuscular Hemoglobin 30.2 pg (28.0-32.0); Mean Corpuscular Volume 89.7 fL (80.0-100.0); Nucleated Red Blood Cells % 0.0 %
[2025-04-10 06:25] LABS: Albumin 3.3 g/dL (3.2-4.8); Alkaline Phosphatase 62 U/L (46-116); Anion Gap 9 (5-15); BUN/Creatinine Ratio 32.1 (10.0-20.0); Blood Urea Nitrogen 17 mg/dL (9-23); Carbon Dioxide 25 mmol/L (20-31); Glucose 102 mg/dL (74-106); Sodium 145 mmol/L (136-145); Total Protein 5.7 g/dL (5.7-8.2)
[2025-04-10 06:26] LABS: Alanine Aminotransferase 9 U/L (7-40); Calcium 8.5 mg/dL (8.7-10.4); Chloride 111 mmol/L (98-107); Potassium 3.4 mmol/L (3.5-5.1)
[2025-04-10 06:33] LABS: Bilirubin, Total 0.3 mg/dL (0.2-1.0)
[2025-04-10] MEDS ORDERED: POTASSIUM EFFERVESENT TAB 25 MEQ GT ONE (08:45)
[2025-04-10] MEDS: BACLOFEN 10 MG TAB PO PRN (09:54)
[2025-04-10] MEDS: POTASSIUM EFFERVESENT TAB 25 MEQ PO SCH (09:54)
[2025-04-10] MEDS ORDERED: ACETAMINOPHEN 325 MG TAB PO PRN (11:15)
[2025-04-10] MEDS: IRON SUCROSE COMPLEX 110 ML IV SCH (12:27)
--- NOTE | 2025-04-10 12:27 | DVHCONRES ---
Date Seen: Apr 10, 2025 Reason for Consultation Right hallux wound History of Present Illness Shaan Dupont, 74-year-old male with a previous history of paraplegia, significant alcohol abuse, chronic leg and back pain, cervical spinal surgery, recent history of UTI (resolved) presented to the to the ER after feeling hot flashes and his blood pressure at home was ranging in 60s/30s. According to the patient's spouse" he is not like normal, something is off". However, patient is A&O x3. The patient also reports having a wound in the right buttock. The patient did not have a bowel movement since last 10 days, the reports lactulose, MiraLax help to some extent. The patient receive home health services, spinal surgery team arranged by [facility]. Now, the is the primary caregiver. He denies any chest pain, shortness of breath, fever, urinary symptoms or any other complaints Past Medical History See H&P Past Surgical History See H&P Family History: Chronic obstructive pulmonary disease Allergies: Coded Allergies: NO KNOWN ALLERGIES (Unverified , 04/07/25) Current Medications Current Medications Medications (Trade) Dose Ordered Sig/Renate Route PRN Reason Start Time Stop Time Status Last Admin Sucralfate (Carafate Susp) 1 gm QIDACHS PO 04/09/25 17:00 04/10/25 06:45 Iron Sucrose 110 ml @ 110 mls/hr DAILY@1200 IV 04/10/25 12:00 04/13/25 13:00 Piperacillin Sod/ Tazobactam Sod 100 ml @ 25 mls/hr Q8H IV 04/10/25 01:00 04/10/25 09:54 Baclofen (Liorisal Tablet) 5 mg Q8HP PRN PO FOR MUSCLE SPASM 04/10/25 06:30 04/10/25 09:54 Potassium Bicarbonate (Klor-Con/Ef) 25 meq DAILY PO 04/10/25 10:00 04/10/25 09:54 Acetaminophen/ Hydrocodone Bitart ([place] 10/325MG Tab) 1 tab Q4HP PRN PO MODERATE PAIN (4-6 PAIN SCALE) 04/10/25 10:15 Acetaminophen (Tylenol Tablet) 650 mg Q6HP PRN PO MILD PAIN (1-3 PAIN SCALE) 04/10/25 11:15 Vital Signs Vital Signs Date Time Temp Pulse Resp B/P (MAP) Pulse Ox O2 Delivery O2 Flow Rate FiO2 04/10/25 09:00 98.7 66 20 108/64 (79) 100 98.7 04/09/25 20:00 Nasal Cannula* 2 28 Physical Exam Dermatological: Skin is dry with mild erythema and some maceration around the wound site No gross deformities noted Mild non-pitting edema present bilaterally Right hallux distal eschar no surrounding erythema Vascular: Dorsalis pedis and posterior tibial pulses are 1+ bilaterally Capillary refill is under 2 seconds Skin temperature is warm bilaterally Neurologic: Protective sensation is absent on the plantar forefoot bilaterally Monofilament testing reveals decreased sensation in multiple plantar sites Musculoskeletal: Range of motion at the ankle and MTP joints is within normal limits. Strength is 5/5 in all tested muscle groups. Gait is antalgic due to offloading of the affected limb. Labs/Diagnostic Data Labs Test 04/10/25 05:01 04/09/25 04:48 04/08/25 17:34 04/08/25 16:43 Range/Units White Blood Count 8.8 # 4.4-10.8 10^3/uL Red Blood Count 2.41 L 4.5-5.90 10^6/uL Hemoglobin 7.3 L 13.5-17.5 g/dL Hematocrit 21.6 L 41.0-53.0 % Mean Corpuscular Volume 89.7 # 80.0-100.0 fL Mean Corpuscular Hemoglobin 30.2 28.0-32.0 pg Mean Corpuscular Hemoglobin Concent 33.7 32.0-36.0 g/dL Red Cell Distribution Width 17.3 H 11.8-14.3 % Platelet Count 206 140-450 10^3/uL Mean Platelet Volume 8.4 6.9-10.8 fL Neutrophils (%) (Auto) 82.6 H 37.0-80.0 % Lymphocytes (%) (Auto) 8.3 L 10.0-50.0 % Monocytes (%) (Auto) 5.5 0.0-12.0 % Eosinophils (%) (Auto) 3.3 0.0-7.0 % Basophils (%) (Auto) 0.3 0.0-2.0 % Neutrophils # (Auto) 7.2 1.6-8.6 10 ^3/uL Lymphocytes # (Auto) 0.7 0.4-5.4 10 ^3/uL Monocytes # (Auto) 0.5 0-1.3 10 ^3/uL Eosinophils # (Auto) 0.3 0-0.8 10 ^3/uL Basophils # (Auto) 0 0-0.2 10 ^3/uL Nucleated Red Blood Cells 0.0 % Sodium Level 145 136-145 mmol/L Potassium Level 3.4 L 3.5-5.1 mmol/L Chloride Level 111 H 98-107 mmol/L Carbon Dioxide Level 25 20-31 mmol/L Anion Gap 9 5-15 Blood Urea Nitrogen 17 9-23 mg/dL Creatinine 0.53 L 0.700-1.30 mg/dL Glomerular Filtration Rate Calc 106 >90 mL/min BUN/Creatinine Ratio 32.1 H 10.0-20.0 Serum Glucose 102 74-106 mg/dL Calcium Level 8.5 L 8.7-10.4 mg/dL Total Bilirubin 0.3 0.2-1.0 mg/dL Aspartate Amino Transferase (AST) 14 13-40 U/L Alanine Aminotransferase (ALT) 9 7-40 U/L Alkaline Phosphatase 62 46-116 U/L Total Protein 5.7 5.7-8.2 g/dL Albumin 3.3 3.2-4.8 g/dL B-Type Natriuretic Peptide 120.44 0-100 pg/mL Influenza Type A Antigen Negative Negative Influenza Type B Antigen Negative Negative SARS-CoV-2 Antigen (Rapid) Negative NEGATIVE Stool Occult Blood Positive Negative Stool Occult Blood Sample #3 Negative Test 04/08/25 08:31 04/08/25 00:00 04/07/25 23:45 04/07/25 21:54 Range/Units Prothrombin Time 10.4 9.3-11.8 sec Prothrombin Time INR 0.98 0.9-1.15 Activated Partial Thromboplast Time 24.5 24.5-34.5 SEC Ferritin 30.1 22-322 ng/mL Folic Acid 9.88 >5.38 ng/mL Thyroid Stimulating Hormone (TSH) 1.99 0.55-4.78 uIU/mL Lactic Acid Level 1.1 0.4-2.0 mmol/L Plasma/Serum Blood Alcohol < 3.0 <10 mg/dL Urine Color Colorless Yellow Urine Clarity Turbid H Clear Urine pH 5.5 5.0-9.0 Urine Specific [place] 1.021 1.001-1.035 Urine Protein Trace H Negative Urine Ketones Negative Negative Urine Blood Negative Negative /uL Urine Nitrite 2+ H Negative Urine Bilirubin Negative Negative Urine Urobilinogen Normal Negative mg/dL Urine Leukocyte Esterase 2+ Negative /uL Urine RBC 22 0 - 3 /hpf Urine WBC Clumps Present None Seen /hpf Urine Microscopic WBC 483 H 0-3 /HPF Urine Squamous Epithelial Cells Few <5 /hpf Urine Bacteria Many H None Seen /hpf Urine Glucose Normal Normal mg/dL Urine Opiates Screen Pos NEGATIVE Urine Fentanyl Screen Neg NEGATIVE Urine Barbiturates Screen Neg NEGATIVE Urine Phencyclidine Screen Neg NEGATIVE Urine Amphetamines Screen Neg NEGATIVE Urine Benzodiazepines Screen Neg NEGATIVE Urine Cocaine Screen Neg NEGATIVE Urine Cannabinoids Screen Neg NEGATIVE Iron Level 95 65-175 ug/dL Total Iron Binding Capacity 282 250-425 ug/dL Percent Iron Saturation 33.7 20-55 % Direct Bilirubin < 0.1 <0.3 mg/dL Troponin I High Sensitivity 7 </=54 ng/L Vitamin B12 Level 269 211-911 pg/mL Microbiology Date/Time Source Procedure Growth Status 04/08/25 17:20 Buttock Gram Stain - Final Resulted 04/08/25 17:20 Buttock Wound Culture - Preliminary Resulted 04/08/25 12:31 Voided Urine Urine Culture - Final Complete 04/08/25 00:18 Blood Blood Culture - Preliminary NO GROWTH AFTER 48 HOURS OF INCUBATION. Resulted Problems(with codes): (1) Encounter for blood transfusion (2) Severe anemia (3) Family history of chronic obstructive pulmonary disease Plan/Recommendation ASSESSMENT: Patient is a 74 year old seen on the floor for a worsening ulcer PLAN: - The patients chart was reviewed, clinical findings were discussed with the patient, the etiologies of the conditions were discussed in detail, and a treatment plan was agreed to at this time, with both oral and written instructions provided. - wound on the right distal hallux appears to be stable at this point - no advanced imaging required - keep dry with Betadine - continue with his wound care visits - no antibiotics required for the toe All questions were answered and concerns addressed to the patient's sa tisfaction. The patient was given the phone number to the clinic and was told how to make contact with the clinic should any concerns or questions arise. Patient understands that if any questions or concerns arise prior to the next appointment, we should be contacted immediately. FOLLOW-UP: Continue to follow while inpatient Plan discussed with: Patient Visit Coding Podiatry Date of Service if different f: Apr 10, 2025 Billing Provider: VALERIE DONOHUE DPM Podiatry Common Visit Codes: PROCEDURE ONLY VALERIE DONOHUE DPM Apr 10, 2025 12:27
[2025-04-10] MEDS: HYDROcodone-ACET 10/325MG TAB PO PRN (12:28)
--- NOTE | 2025-04-10 16:22 | DVHPN2 ---
Progress Note Date Seen: Apr 10, 2025 Resident Creating Document: WHITNEY BORRERO RESIDENT Medical Necessity Reason Pt with a Central, PICC or Fol: No Subjective Review of Systems Shaan Dupont, 74-year-old male with a previous history of paraplegia, significant alcohol abuse, chronic leg and back pain, cervical spinal surgery, recent history of UTI (resolved) presented to the to the ER after feeling hot flashes and his blood pressure at home was ranging in 60s/30s. According to the patient's spouse" he is not like normal, something is off". However, patient is A&O x3. The patient also reports having a wound in the right buttock. The patient did not have a bowel movement since last 10 days, the reports lactulose, MiraLax help to some extent. The patient receive home health services, spinal surgery team arranged by [facility]. Now, the is the primary caregiver. He denies any chest pain, shortness of breath, fever, urinary symptoms or any other complaints Past surgical history: Cervical spine surgery Home medications: Hydrocodone, baclofen, ibuprofen Drug allergies: None Smoking: Quit many years ago. Previously taken 2 packs per day for many years Alcohol: 2-3 beers per day Drug abuse: None Code status: DNI, DNR Patient seen and examined, no active complaint. Patient is stable to be discharged. Objective vital signs Vital Sign Date Time Temp Pulse Resp B/P (MAP) Pulse Ox O2 Delivery O2 Flow Rate FiO2 04/10/25 13:00 98.4 66 16 99/58 (72) 100 98.4 04/09/25 20:00 Nasal Cannula* 2 28 Total Intake and Output 04/09/25 04/09/25 04/10/25 15:00 23:00 07:00 Intake Total 0 ml 0 ml 480 ml Output Total 375 ml Balance -375 ml 0 ml 480 ml medications Current Medications Medications Dose Ordered Sig/Renate Route Start Time Stop Time Status Last Admin Dose Admin Cyanocobalamin 500 mcg DAILY PO 04/08/25 10:00 04/10/25 09:54 500 MCG Pantoprazole Sodium 40 mg BID IV 04/08/25 10:00 04/10/25 09:54 40 MG Lactulose 30 ml BID PO 04/08/25 22:00 Sucralfate 1 gm QIDACHS PO 04/09/25 17:00 04/10/25 12:27 1 GM Iron Sucrose 110 ml @ 110 mls/hr DAILY@1200 IV 04/10/25 12:00 04/13/25 13:00 04/10/25 12:27 110 MLS/HR Piperacillin Sod/ Tazobactam Sod 100 ml @ 25 mls/hr Q8H IV 04/10/25 01:00 04/10/25 09:54 25 MLS/HR Baclofen 5 mg Q8HP PRN PO 04/10/25 06:30 04/10/25 09:54 5 MG Potassium Bicarbonate 25 meq DAILY PO 04/10/25 10:00 04/10/25 09:54 25 MEQ Acetaminophen/ Hydrocodone Bitart 1 tab Q4HP PRN PO 04/10/25 10:15 04/10/25 12:28 1 TAB Acetaminophen 650 mg Q6HP PRN PO 04/10/25 11:15 Examination Patient lying in bed, in no acute distress General: Well-built, afebrile, palor, mucosae are moist Cardiovascular: Regular S1 and S2. No murmurs, gallops or rubs. No JVD elevation. No pedal edema Respiratory: Normal B/L air entry on room air. Clear lung sounds on auscultation Abdomen: Soft, nontender, nondistended, normoactive bowel sounds, no rebound tenderness, no organomegaly, no masses Genitourinary: Deferred Psych/Mental Status: A/Ox3 laboratory and microbiology Laboratory Tests 04/10/25 05:01 Test 04/10/25 05:01 Range/Units Serum Glucose 102 74-106 mg/dL Microbiology Date/Time Source Procedure Growth Status 04/08/25 17:20 Buttock Gram Stain - Final Resulted 04/08/25 17:20 Buttock Wound Culture - Preliminary Resulted 04/08/25 12:31 Voided Urine Urine Culture - Final Complete 04/08/25 00:18 Blood Blood Culture - Preliminary NO GROWTH AFTER 48 HOURS OF INCUBATION. Resulted Labs and/or images reviewed: Labs reviewed by me, Image(s) reviewed by me Problem List/Assessment/Plan Problem List/Assessment/Plan Septic shock likely secondary to colitis Fecal impaction Moderate antral gastritis Aazt-pu-upcjvosl duodenitis Acute blood loss anemia likely secondary to above status post 1 RBC transfusion Acute urinary tract infection Alcohol dependence Protein malnutrition CT abdomen shows findings suggestive of fecal infection with possible early stercoral colitis in an appropriate clinical setting Soft tissue stranding as above. POSTOPERATIVE DIAGNOSES: 1. Moderate linear antral gastritis with pre-pyloric antral gastric erosions and some scarring from previous ulcer disease 2. Scox-fy-ggzwlhax duodenitis with duodenal erosions otherwise normal examination up to the 2nd and 3rd part of the duodenum Plan/Recommendation Follow up with GI as outpatient for biopsy results. Continue Protonix 40 mg twice daily. Carafate suspension 1 g p.o. 4 times a day. DC aspirin NSAIDs smoking and alcohol. Patient is stable to be discharged from GI point of view Fleet enema ordered, rectal impaction or performed, large amount of stool burden was evacuated. Lactulose increased to 30 mL b.i.d. Thank you for consulting GI Plan discussed with patient in which all questions have been answered Case discussed with Dr. Beverly Plan discussed with: Patient WHITNEY BORRERO RESIDENT Apr 10, 2025 16:22
--- NOTE | 2025-04-10 20:00 | DVHPNRES ---
Progress Note Date Seen: Apr 10, 2025 Resident Creating Document: LEA HENDERSON RESIDENT Medical Necessity Reason Pt with a Central, PICC or Fol: No Subjective Review of Systems Shaan Dupont, 74-year-old male with a previous history of paraplegia, significant alcohol abuse, chronic leg and back pain, cervical spinal surgery, recent history of UTI (resolved) presented to the to the ER after feeling hot flashes and his blood pressure at home was ranging in 60s/30s. According to the patient's spouse" he is not like normal, something is off". However, patient is A&O x3. The patient also reports having a wound in the right buttock. The patient did not have a bowel movement since last 10 days, the reports lactulose, MiraLax help to some extent. The patient receive home health services, spinal surgery team arranged by [facility]. Now, the is the primary caregiver. He denies any chest pain, shortness of breath, fever, urinary symptoms or any other complaints. As per patient patient had hot flashes, was feeling disoriented, states he did not lose consciousness and he did have trouble urinating since 2 days. Patient also was constipated since 9 days. Past surgical history: Cervical spine surgery Home medications: Hydrocodone, baclofen, ibuprofen Drug allergies: None Smoking: Quit many years ago. Previously taken 2 packs per day for many years Alcohol: 2-3 beers per day Drug abuse: None Code status: DNI, not DNR 04/08/2025: patient seen in the ER. Patient is on 2 L oxygen, denies any home oxygen. Patient today complains of generalized pain. Urinalysis showed positive for UTI. Urine culture ordered. GI consult was placed, monitored H&H, started IV Zosyn, patient was weaned off Levophed. Patient can be downgraded to tele. Podiatry consult placed for right foot toe ulcer. Patient is DNI only. I signed the paperwork for DNA not DNR. 04/09/25: Patient seen in the ER. Patient is on 2 L oxygen. patient today complained of seeing hazy colors. Feeling confused. Patient had a dark tarry stool with Fleet enema. EGD done today which showed 1. Moderate linear antral gastritis with pre-pyloric antral gastric erosions and some scarring from previous ulcer disease . Nqsn-lo-[id number] duodenitis with duodenal erosions otherwise normal examination up to the 2nd and 3rd part of the duodenum. Monitoring H&H 01/08/2025: Patient seen at bedside. Patient is on 2 L oxygen. Patient today complain of generalized body pains. Added baclofen, [place]. GI has cleared the patient for discharge. Monitor H&H. Possible discharge tomorrow Objective vital signs Vital Sign Date Time Temp Pulse Resp B/P (MAP) Pulse Ox O2 Delivery O2 Flow Rate FiO2 04/10/25 16:48 98.4 61 20 103/59 (74) 97 98.4 04/10/25 08:00 Nasal Cannula* 2 28 Total Intake and Output 04/09/25 04/09/25 04/10/25 15:00 23:00 07:00 Intake Total 0 ml 0 ml 480 ml Output Total 375 ml Balance -375 ml 0 ml 480 ml medications Current Medications Medications Dose Ordered Sig/Renate Route Start Time Stop Time Status Last Admin Dose Admin Cyanocobalamin 500 mcg DAILY PO 04/08/25 10:00 04/10/25 09:54 500 MCG Pantoprazole Sodium 40 mg BID IV 04/08/25 10:00 04/10/25 09:54 40 MG Lactulose 30 ml BID PO 04/08/25 22:00 Sucralfate 1 gm QIDACHS PO 04/09/25 17:00 04/10/25 18:24 1 GM Iron Sucrose 110 ml @ 110 mls/hr DAILY@1200 IV 04/10/25 12:00 04/13/25 13:00 04/10/25 12:27 110 MLS/HR Piperacillin Sod/ Tazobactam Sod 100 ml @ 25 mls/hr Q8H IV 04/10/25 01:00 04/10/25 09:54 25 MLS/HR Baclofen 5 mg Q8HP PRN PO 04/10/25 06:30 04/10/25 09:54 5 MG Potassium Bicarbonate 25 meq DAILY PO 04/10/25 10:00 04/10/25 09:54 25 MEQ Acetaminophen/ Hydrocodone Bitart 1 tab Q4HP PRN PO 04/10/25 10:15 04/10/25 12:28 1 TAB Acetaminophen 650 mg Q6HP PRN PO 04/10/25 11:15 Examination General: Patient alert and oriented in person, place and time. Patient following commands. HEENT: Normocephalic, atraumatic, moist mucous membranes Respiratory/pulmonary: Clear lungs bilaterally, vesicular murmurs present in almost all lung alfaro, no associated crackles or wheezes. Cardiovascular: Normal heart sounds S1 and S2 with no associated murmurs Abdomen: rectal exam declined, no tenderness on palpation of abdomen. Extremities: There is no peripheral edema present at the lower extremities. Peripheral Pulses: 3+ Radial (R). 3+ Radial (L). 3+ Dorsalis pedis (R). 3+ Dorsalis pedis(L) Skin: sacral ulcer stage 3-4 present on admission, right big toe ulcer laboratory and microbiology Laboratory Tests 04/10/25 05:01 Test 04/10/25 05:01 Range/Units Serum Glucose 102 74-106 mg/dL Microbiology Date/Time Source Procedure Growth Status 04/08/25 17:20 Buttock Gram Stain - Final Resulted 04/08/25 17:20 Buttock Wound Culture - Preliminary Resulted 04/08/25 12:31 Voided Urine Urine Culture - Final Complete 04/08/25 00:18 Blood Blood Culture - Preliminary NO GROWTH AFTER 48 HOURS OF INCUBATION. Resulted Problem List/Assessment/Plan Problem List/Assessment/Plan Septic shock likely due to UTI - IV bolus fluids given - discontinued Levophed - IV Zosyn Pneumonia Gram-positive vs Gram-negative - CXR ordered showed Increased interstitial prominence. This may represent pulmonary vascular congestion and/or viral pneumonia. - IV Zosyn Complicated UTI - urinalysis positive for UTI - urine culture ordered - IV Zosyn Acute severe anemia possible GI bleed Slow transit Constipation - abdomen CT: Colitis, impacted stool -per rectal exam declined -blood transfusion 1 PRBC given -IV fluid - monitor H&H - GI consulted for possible GI bleed - EGD done today which showed Moderate linear antral gastritis with pre-pyloric antral gastric erosions and some scarring from previous ulcer disease . Vlph-ss-[id number] duodenitis with duodenal erosions otherwise normal examination up to the 2nd and 3rd part of the duodenum - Fleet enema ordered - Lactulose given for constipation - GI cleared patient for discharge. History of for paraplegia Hypokalemia Ulcer in the gluteal region right foot toe ulcer - podiatry consult placed -wound consult -wound culture -continue IV antibiotics Alcohol abuse disorder - patient counseled on cessation of alcohol for more than 18 minutes. GI prophylaxis: Pantoprazole DVT prophylaxis: lovenox held due to anemia, SCDs Diet: Regular Goals of care discussed with the patient for more than 29 minutes: Full code status Case discussed with Dr. Uribe, patient and RN Plan discussed with: Patient My Orders My Orders Orders - LEA HENDERSON RESIDENT Procedure Category Date Status Time Baclofen Tablet PHA 04/10/25 In Process (Liorisal Tablet) 06:30 Potassium Effervesent PHA 04/10/25 In Process Tab (Klor-Con/Ef) 10:00 * [employer] CONS 04/10/25 Transmitted Consult Hydrocodone-Acet PHA 04/10/25 In Process 10/325mg Tab ([place] 10:15 Date of Service: Apr 10, 2025 Billing Provider: PAOLA URIBE MD Common Visit Codes: [id number] INP/OBS CARE(HIGH) LEA HENDERSON RESIDENT Apr 10, 2025 20:00 PAOLA URIBE MD Apr 10, 2025 21:46
[2025-04-11] VITALS (8 sets, daily range): BP systolic 104–122; BP diastolic 56–90; PULSE 67–78; RESP 18–20; TEMP 97.7–98.1; O2SAT 96–100
[2025-04-11 06:04] LABS: Hemoglobin 7.5 g/dL (13.5-17.5); Nucleated Red Blood Cells % 0.1 %
[2025-04-11 06:06] LABS: Hematocrit 21.4 % (41.0-53.0); Mean Corpuscular Hemoglobin 33.3 pg (28.0-32.0); Mean Corpuscular Volume 94.4 fL (80.0-100.0)
[2025-04-11 06:31] LABS: Anion Gap 8 (5-15); Calcium 8.7 mg/dL (8.7-10.4); Carbon Dioxide 26 mmol/L (20-31); Sodium 144 mmol/L (136-145)
[2025-04-11 06:36] LABS: Chloride 110 mmol/L (98-107); Glucose 96 mg/dL (74-106); Potassium 3.3 mmol/L (3.5-5.1)
[2025-04-11 06:37] LABS: BUN/Creatinine Ratio 28.9 (10.0-20.0); Blood Urea Nitrogen 13 mg/dL (9-23)
[2025-04-11] MEDS: POTASSIUM EFFERVESENT TAB 25 MEQ PO ONE (08:03)
--- NOTE | 2025-04-11 10:49 | DVHPN2 ---
Progress Note Date Seen: Apr 11, 2025 Resident Creating Document: WHITNEY BORRERO RESIDENT Medical Necessity Reason Pt with a Central, PICC or Fol: No Subjective Review of Systems Shaan Dupont, 74-year-old male with a previous history of paraplegia, significant alcohol abuse, chronic leg and back pain, cervical spinal surgery, recent history of UTI (resolved) presented to the to the ER after feeling hot flashes and his blood pressure at home was ranging in 60s/30s. According to the patient's spouse" he is not like normal, something is off". However, patient is A&O x3. The patient also reports having a wound in the right buttock. The patient did not have a bowel movement since last 10 days, the reports lactulose, MiraLax help to some extent. The patient receive home health services, spinal surgery team arranged by [facility]. Now, the is the primary caregiver. He denies any chest pain, shortness of breath, fever, urinary symptoms or any other complaints Past surgical history: Cervical spine surgery Home medications: Hydrocodone, baclofen, ibuprofen Drug allergies: None Smoking: Quit many years ago. Previously taken 2 packs per day for many years Alcohol: 2-3 beers per day Drug abuse: None Code status: DNI, DNR Patient seen and examined, no active complaint. Objective vital signs Vital Sign Date Time Temp Pulse Resp B/P (MAP) Pulse Ox O2 Delivery O2 Flow Rate FiO2 04/11/25 09:00 97.7 67 20 122/60 (80) 98 97.7 04/10/25 20:00 Nasal Cannula* 2 28 Total Intake and Output 04/10/25 04/10/25 04/11/25 15:00 23:00 07:00 Intake Total 900 ml 275 ml Output Total 1000 ml 320 ml Balance -100 ml -45 ml medications Current Medications Medications Dose Ordered Sig/Renate Route Start Time Stop Time Status Last Admin Dose Admin Cyanocobalamin 500 mcg DAILY PO 04/08/25 10:00 04/11/25 10:07 500 MCG Pantoprazole Sodium 40 mg BID IV 04/08/25 10:00 04/11/25 10:07 40 MG Lactulose 30 ml BID PO 04/08/25 22:00 Sucralfate 1 gm QIDACHS PO 04/09/25 17:00 04/11/25 06:39 1 GM Iron Sucrose 110 ml @ 110 mls/hr DAILY@1200 IV 04/10/25 12:00 04/13/25 13:00 04/10/25 12:27 110 MLS/HR Baclofen 5 mg Q8HP PRN PO 04/10/25 06:30 04/11/25 10:07 5 MG Potassium Bicarbonate 25 meq DAILY PO 04/10/25 10:00 04/11/25 10:07 25 MEQ Acetaminophen/ Hydrocodone Bitart 1 tab Q4HP PRN PO 04/10/25 10:15 04/11/25 10:07 1 TAB Acetaminophen 650 mg Q6HP PRN PO 04/10/25 11:15 Piperacillin Sod/ Tazobactam Sod 100 ml @ 25 mls/hr Q8H IV 04/10/25 23:00 04/11/25 06:39 25 MLS/HR Examination Patient lying in bed, in no acute distress General: Well-built, afebrile, palor, mucosae are moist Cardiovascular: Regular S1 and S2. No murmurs, gallops or rubs. No JVD elevation. No pedal edema Respiratory: Normal B/L air entry on room air. Clear lung sounds on auscultation Abdomen: Soft, nontender, nondistended, normoactive bowel sounds, no rebound tenderness, no organomegaly, no masses Genitourinary: Deferred Psych/Mental Status: A/Ox3 laboratory and microbiology Laboratory Tests 04/11/25 04:46 Test 04/11/25 04:46 Range/Units Serum Glucose 96 74-106 mg/dL Microbiology Date/Time Source Procedure Growth Status 04/08/25 17:20 Buttock Gram Stain - Final Resulted 04/08/25 17:20 Wound Culture - Preliminary Pseudomonas aeruginosa Providencia staurtii Resulted 04/08/25 12:31 Voided Urine Urine Culture - Final Complete 04/08/25 00:18 Blood Blood Culture - Preliminary NO GROWTH AFTER 72 HOURS OF INCUBATION. Resulted Labs and/or images reviewed: Labs reviewed by me, Image(s) reviewed by me Problem List/Assessment/Plan Problem List/Assessment/Plan Septic shock likely secondary to colitis Fecal impaction Moderate antral gastritis Pzoq-nt-svrtkxxe duodenitis Acute blood loss anemia likely secondary to above status post 1 RBC transfusion Acute urinary tract infection Alcohol dependence Protein malnutrition CT abdomen shows findings suggestive of fecal infection with possible early stercoral colitis in an appropriate clinical setting Soft tissue stranding as above. POSTOPERATIVE DIAGNOSES: 1. Moderate linear antral gastritis with pre-pyloric antral gastric erosions and some scarring from previous ulcer disease 2. Ocvk-lr-[id number] duodenitis with duodenal erosions otherwise normal examination up to the 2nd and 3rd part of the duodenum Plan/Recommendation H&H stable. Follow up with GI as outpatient for biopsy results. Continue Protonix 40 mg twice daily. Carafate suspension 1 g p.o. 4 times a day. DC aspirin NSAIDs smoking and alcohol. Patient is stable to be discharged from GI point of view Fleet enema ordered, rectal impaction or performed, large amount of stool burden was evacuated. Lactulose increased to 30 mL b.i.d. Thank you for consulting GI Plan discussed with patient in which all questions have been answered Case discussed with Dr. Beverly Plan discussed with: Patient WHITNEY BORRERO RESIDENT Apr 11, 2025 10:49
--- NOTE | 2025-04-11 14:36 | DVHINCON2 ---
Date of service: Apr 11, 2025 Family History: Chronic obstructive pulmonary disease Allergies: Coded Allergies: NO KNOWN ALLERGIES (Unverified , 04/07/25) Current Medications Current Medications Medications (Trade) Dose Ordered Sig/Renate Route PRN Reason Start Time Stop Time Status Last Admin Piperacillin Sod/ Tazobactam Sod 100 ml @ 25 mls/hr Q8H IV 04/10/25 23:00 04/11/25 06:39 Vital Signs Vital Signs Date Time Temp Pulse Resp B/P (MAP) Pulse Ox O2 Delivery O2 Flow Rate FiO2 04/11/25 09:00 97.7 67 20 122/60 (80) 98 97.7 04/11/25 08:00 Room Air* 0 21 Labs/Diagnostic Data Labs Test 04/11/25 04:46 04/10/25 05:01 04/09/25 04:48 04/08/25 17:34 Range/Units White Blood Count 6.0 # 4.4-10.8 10^3/uL Red Blood Count 2.26 L 4.5-5.90 10^6/uL Hemoglobin 7.5 L 13.5-17.5 g/dL Hematocrit 21.4 L 41.0-53.0 % Mean Corpuscular Volume 94.4 # 80.0-100.0 fL Mean Corpuscular Hemoglobin 33.3 H 28.0-32.0 pg Mean Corpuscular Hemoglobin Concent 35.2 32.0-36.0 g/dL Red Cell Distribution Width 17.1 H 11.8-14.3 % Platelet Count 233 140-450 10^3/uL Mean Platelet Volume 8.5 6.9-10.8 fL Neutrophils (%) (Auto) 72.1 37.0-80.0 % Lymphocytes (%) (Auto) 15.5 10.0-50.0 % Monocytes (%) (Auto) 8.6 0.0-12.0 % Eosinophils (%) (Auto) 3.2 0.0-7.0 % Basophils (%) (Auto) 0.6 0.0-2.0 % Neutrophils # (Auto) 4.3 1.6-8.6 10 ^3/uL Lymphocytes # (Auto) 0.9 0.4-5.4 10 ^3/uL Monocytes # (Auto) 0.5 0-1.3 10 ^3/uL Eosinophils # (Auto) 0.2 0-0.8 10 ^3/uL Basophils # (Auto) 0 0-0.2 10 ^3/uL Nucleated Red Blood Cells 0.1 % Sodium Level 144 136-145 mmol/L Potassium Level 3.3 L 3.5-5.1 mmol/L Chloride Level 110 H 98-107 mmol/L Carbon Dioxide Level 26 20-31 mmol/L Anion Gap 8 5-15 Blood Urea Nitrogen 13 9-23 mg/dL Creatinine 0.45 L 0.700-1.30 mg/dL Glomerular Filtration Rate Calc 112 >90 mL/min BUN/Creatinine Ratio 28.9 H 10.0-20.0 Serum Glucose 96 74-106 mg/dL Calcium Level 8.7 8.7-10.4 mg/dL Total Bilirubin 0.3 0.2-1.0 mg/dL Aspartate Amino Transferase (AST) 14 13-40 U/L Alanine Aminotransferase (ALT) 9 7-40 U/L Alkaline Phosphatase 62 46-116 U/L Total Protein 5.7 5.7-8.2 g/dL Albumin 3.3 3.2-4.8 g/dL B-Type Natriuretic Peptide 120.44 0-100 pg/mL Influenza Type A Antigen Negative Negative Influenza Type B Antigen Negative Negative SARS-CoV-2 Antigen (Rapid) Negative NEGATIVE Test 04/08/25 16:43 04/08/25 08:31 04/08/25 00:00 04/07/25 23:45 Range/Units Stool Occult Blood Positive Negative Stool Occult Blood Sample #3 Negative Prothrombin Time 10.4 9.3-11.8 sec Prothrombin Time INR 0.98 0.9-1.15 Activated Partial Thromboplast Time 24.5 24.5-34.5 SEC Ferritin 30.1 22-322 ng/mL Folic Acid 9.88 >5.38 ng/mL Thyroid Stimulating Hormone (TSH) 1.99 0.55-4.78 uIU/mL Lactic Acid Level 1.1 0.4-2.0 mmol/L Plasma/Serum Blood Alcohol < 3.0 <10 mg/dL Urine Color Colorless Yellow Urine Clarity Turbid H Clear Urine pH 5.5 5.0-9.0 Urine Specific [place] 1.021 1.001-1.035 Urine Protein Trace H Negative Urine Ketones Negative Negative Urine Blood Negative Negative /uL Urine Nitrite 2+ H Negative Urine Bilirubin Negative Negative Urine Urobilinogen Normal Negative mg/dL Urine Leukocyte Esterase 2+ Negative /uL Urine RBC 22 0 - 3 /hpf Urine WBC Clumps Present None Seen /hpf Urine Microscopic WBC 483 H 0-3 /HPF Urine Squamous Epithelial Cells Few <5 /hpf Urine Bacteria Many H None Seen /hpf Urine Glucose Normal Normal mg/dL Urine Opiates Screen Pos NEGATIVE Urine Fentanyl Screen Neg NEGATIVE Urine Barbiturates Screen Neg NEGATIVE Urine Phencyclidine Screen Neg NEGATIVE Urine Amphetamines Screen Neg NEGATIVE Urine Benzodiazepines Screen Neg NEGATIVE Urine Cocaine Screen Neg NEGATIVE Urine Cannabinoids Screen Neg NEGATIVE Test 04/07/25 21:54 Range/Units Iron Level 95 65-175 ug/dL Total Iron Binding Capacity 282 250-425 ug/dL Percent Iron Saturation 33.7 20-55 % Direct Bilirubin < 0.1 <0.3 mg/dL Troponin I High Sensitivity 7 </=54 ng/L Vitamin B12 Level 269 211-911 pg/mL Microbiology Date/Time Source Procedure Growth Status 04/08/25 17:20 Buttock Gram Stain - Final Resulted 04/08/25 17:20 Wound Culture - Preliminary Pseudomonas aeruginosa Providencia staurtii Resulted 04/08/25 12:31 Voided Urine Urine Culture - Final Complete 04/08/25 00:18 Blood Blood Culture - Preliminary NO GROWTH AFTER 72 HOURS OF INCUBATION. Resulted Problems(with codes): (1) Stercoral colitis (2) Cellulitis of right buttock (3) Severe anemia (4) Encounter for blood transfusion Plan/Recommendation ASSESSMENT AND PLAN ID Problem List: -Paraplegia -Significant alcohol use -Chronic leg and back pain (postcervical spine surgery) -Chronic recurrent urinary tract infections -Right lateral/posterolateral buttock pressure injury (described as dry, stage 1; non-abscessed; no drainage) -Constipation with fecal impaction; CT evidence concerning for possible early stercoral colitis -Acute anemia with reported black, tarry stools (concern for upper GI bleed) - R buttock cellulitis -Wound culture from right buttock: Pseudomonas spp. and Providencia spp.; Providencia resistant to fluoroquinolones, sensitive to ceftriaxone -Blood cultures: no growth to date at 72 hours Assessment This is a male with paraplegia and history of significant alcohol use, chronic pain (postcervical spine surgery), and chronic recurrent UTIs who presented with hypertension, hot flashes, and fatigue. He reports a right buttock wound developing over ~10 days with associated constipation and inability to have a bowel movement; denies fevers or chills. On arrival: T 98.9F, HR 95, RR 16, BP 96/68, SpO2 100% RA. Exam/imaging and GI evaluation are notable for: -Right buttock pressure injury; currently described as dry, stage 1, non- abscessed, no drainage; kept dry with Betadine. Early documentation on admission referenced edema, fluctuance, and purulent drainage, but current description indicates no drainage and no abscess. -CT abdomen/pelvis: fecal impaction with findings suggestive of possible early stercoral colitis; soft tissue stranding where infectious/inflammatory process cannot be excluded. -EGD: findings consistent with prior ulcer disease (antral erosions/scarring) and mildmoderate duodenitis; otherwise normal to the second/third part of the duodenum. Clinical history includes black, tarry stools, raising concern for an upper GI bleed and explaining the acute anemia. -Microbiology: Wound culture from the buttock grew Pseudomonas and Providencia. Providencia reported resistant to fluoroquinolones and sensitive to ceftriaxone. Blood cultures no growth to date (72 hours). Antimicrobial course to date includes ceftriaxone and metronidazole (Flagyl) initially, later transitioned to piperacillintazobactam (Zosyn) starting 04/07; total of five days of antibiotics so far per transcript. Plan: -Antimicrobials (inpatient): Continue IV Zosyn for stercoral colitis while inpatient. Patient has had bowel movements following enemas. -Wound/skin: Continue local wound care to right buttock pressure injury; keep dry with Betadine; monitor closely for surrounding cellulitis. -Discharge option mentioned: ciprofloxacin 500 mg PO BID x 5 days for buttock cellulitis -Note: Providencia isolate reported resistant to fluoroquinolones and sensitive to ceftriaxone and Zosyn -GI/acute anemia: Defer management to primary team and GI. GI consulted; EGD completed with findings as above. Continue GI-directed evaluation and treatment for suspected upper GI bleed. -Bowel regimen: Enemas administered; continue bowel management to prevent recurrent fecal impaction. -Code status: DNR/DNI per patient. -Blood cultures: continue to monitor; currently no growth at 72 hours. -Isolation Precautions: standard. Assessment and plan discussed with the team as outlined above. Plan subject to change with new information; updates may be added as an addendum. Thank you for the consult. ID will continue to follow. Please contact Infectious Disease for questions or concerns. Electronically signed by: Aggie Ramon MD, 04/11/2025 HISTORY The patients chart and medications were reviewed; the patient was seen and examined. History obtained from: Not specified in transcript. Mr. Shaan Dupont is a male with paraplegia, significant alcohol use, chronic leg and back pain after cervical spine surgery, and chronic recurrent UTIs. He presented to the ED with hypertension, hot flashes, and fatigue. He reports a right buttock wound developing over approximately 10 days and inability to have a bowel movement related to it. He denies fevers and chills. Home medications include hydrocodone, baclofen, and ibuprofen. He is a former smoker (approximately two packs/day; quit many years ago) and drinks 23 beers. Code status: DNR/DNI. REVIEW OF SYSTEMS -Constitutional: Fatigue present. Denies fevers and chills. -HEENT: Not discussed. -Respiratory: Not discussed. -Cardiovascular: Presents with hypertension per history; otherwise not discussed. -Gastrointestinal: Constipation and black, tarry stools reported. Abdominal pain, nausea, vomiting, diarrhea not discussed. -Genitourinary: History of chronic recurrent UTIs. Dysuria, frequency not discussed. -Musculoskeletal: Chronic leg and back pain. -Skin: Right buttock wound/pressure injury noted. -Neurological: Paraplegia. Alert and oriented. -Psychiatric: Not discussed. -Endocrine: Hot flashes reported. -Hematologic: Acute anemia noted. Easy bruising/bleeding not discussed. -Allergic/Immunologic: Not discussed. PAST MEDICAL HISTORY -Paraplegia -Significant alcohol use -Chronic leg and back pain -Chronic recurrent urinary tract infections -Acute anemia with suspected upper GI bleed (current hospitalization) PAST SURGICAL HISTORY -Cervical spine surgery HOME MEDICATIONS -Hydrocodone (dose/route/frequency not provided) -Baclofen (dose/route/frequency not provided) -Ibuprofen (dose/route/frequency not provided) ALLERGIES -Not provided in transcript FAMILY HISTORY -Not provided in transcript SOCIAL HISTORY - -Tobacco: Former smoker (~2 packs/day), quit many years ago -Alcohol: 23 beers -Illicit drugs: Not provided in transcript -Living situation/occupation: Not provided in transcript -Code status: DNR/DNI OBJECTIVE Vital Signs on Arrival: -Temp: 98.9 F -BP: 96/68 mmHg -Pulse: 95 bpm -Resp: 16/min -SpO2: 100% on room air Most Recent Vital Signs: -Not provided in transcript Admission Weight: -Not provided in transcript Physical Exam: General: NAD. Neck: Supple. No masses. HEENT: PERRL. Normal lids and conjunctiva. Moist mucous membranes. Oropharynx without lesions, exudates, or excessive erythema. Normal appearance of the e xternal aspects of the nose and ears. Heart: Regular rhythm, normal rate. No murmur. No lower extremity edema. Lungs: Normal respiratory effort. Clear to auscultation bilaterally. No wheezes. No crackles. Abdomen: Soft. Non-tender. Non-distended. No masses or abdominal hernia. Msk: No digital cyanosis. Normal strength and tone in upper extremities. Paraplegia of lower extremities. Skin: Warm and dry, no rashes. Right lateral/posterolateral buttock pressure injury, dry, stage 1; non-abscessed; no drainage. Right distal helix lesion noted; stable, non-ulcerated, without drainage; kept dry with Betadine. Neuro: Alert. No facial droop or slurred speech. Extra-ocular movements intact. Paraplegia of lower extremities. Sensation: not documented in transcript. Psych: Appropriate mood. Full affect. Oriented to person, place, time, and situation. Lines: -Not provided in transcript DIAGNOSTIC STUDIES -Laboratory (selected): -WBC: 10.1 K/L -Hemoglobin: reported as 9, 6.8 (notation unclear in transcript) -Platelets: 249 K/L -Sodium: reported as one forty b one (notation unclear) -Additional value 45 reported (context unclear) -Creatinine: 0.69 mg/dL -Microbiology: -Blood cultures: no growth to date at 72 hours -Wound culture (buttock): Pseudomonas spp. and Providencia spp.; Providencia resistant to fluoroquinolones; sensitive to ceftriaxone -Procedures: -Upper endoscopy with biopsy: moderate antral erosions/scarring consistent with prior ulcer disease; mildmoderate duodenitis; otherwise normal to the second/third portion of the duodenum PERTINENT IMAGING -CT Abdomen/Pelvis: Findings suggest fecal impaction with possible early stercoral colitis in the appropriate clinical setting. Soft tissue stranding; infectious/inflammatory process cannot be excluded. Right posterior buttock with a clear open wound noted. Plan discussed with: Patient AGGIE RAMON MD Apr 11, 2025 14:36
[2025-04-11] MEDS ORDERED: CIPR500T4 PO ×2 (16:08→17:28)
[2025-04-11] MEDS ORDERED: SUCR1SUS26 PO (16:09)
[2025-04-11] MEDS ORDERED: PANT40T PO (16:09)
--- NOTE | 2025-04-11 16:14 | DVHDSRES ---
Discharge Summary Date of Admission Resident Creating Document: LEA HENDERSON Apr 07, 2025 at 23:26 Date of Discharge: Apr 11, 2025 Admitting Diagnosis Septic shock Labs/Diagnostic Data: Laboratory Results Test 04/11/25 04:46 04/10/25 05:01 04/09/25 04:48 04/08/25 17:34 White Blood Count 6.0 10^3/uL (4.4-10.8) Red Blood Count 2.26 10^6/uL (4.5-5.90) Hemoglobin 7.5 g/dL (13.5-17.5) Hematocrit 21.4 % (41.0-53.0) Mean Corpuscular Volume 94.4 fL (80.0-100.0) Mean Corpuscular Hemoglobin 33.3 pg (28.0-32.0) Mean Corpuscular Hemoglobin Concent 35.2 g/dL (32.0-36.0) Red Cell Distribution Width 17.1 % (11.8-14.3) Platelet Count 233 10^3/uL (140-450) Mean Platelet Volume 8.5 fL (6.9-10.8) Neutrophils (%) (Auto) 72.1 % (37.0-80.0) Lymphocytes (%) (Auto) 15.5 % (10.0-50.0) Monocytes (%) (Auto) 8.6 % (0.0-12.0) Eosinophils (%) (Auto) 3.2 % (0.0-7.0) Basophils (%) (Auto) 0.6 % (0.0-2.0) Neutrophils # (Auto) 4.3 10 ^3/uL (1.6-8.6) Lymphocytes # (Auto) 0.9 10 ^3/uL (0.4-5.4) Monocytes # (Auto) 0.5 10 ^3/uL (0-1.3) Eosinophils # (Auto) 0.2 10 ^3/uL (0-0.8) Basophils # (Auto) 0 10 ^3/uL (0-0.2) Nucleated Red Blood Cells 0.1 % Sodium Level 144 mmol/L (136-145) Potassium Level 3.3 mmol/L (3.5-5.1) Chloride Level 110 mmol/L (98-107) Carbon Dioxide Level 26 mmol/L (20-31) Anion Gap 8 (5-15) Blood Urea Nitrogen 13 mg/dL (9-23) Creatinine 0.45 mg/dL (0.700-1.30) Glomerular Filtration Rate Calc 112 mL/min (>90) BUN/Creatinine Ratio 28.9 (10.0-20.0) Serum Glucose 96 mg/dL (74-106) Calcium Level 8.7 mg/dL (8.7-10.4) Total Bilirubin 0.3 mg/dL (0.2-1.0) Aspartate Amino Transferase (AST) 14 U/L (13-40) Alanine Aminotransferase (ALT) 9 U/L (7-40) Alkaline Phosphatase 62 U/L (46-116) Total Protein 5.7 g/dL (5.7-8.2) Albumin 3.3 g/dL (3.2-4.8) B-Type Natriuretic Peptide 120.44 pg/mL (0-100) Influenza Type A Antigen Negative (Negative) Influenza Type B Antigen Negative (Negative) SARS-CoV-2 Antigen (Rapid) Negative (NEGATIVE) Test 04/08/25 16:43 04/08/25 08:31 04/08/25 00:00 04/07/25 23:45 Stool Occult Blood Positive (Negative) Stool Occult Blood Sample #3 (Negative) Prothrombin Time 10.4 sec (9.3-11.8) Prothrombin Time INR 0.98 (0.9-1.15) Activated Partial Thromboplast Time 24.5 SEC (24.5-34.5) Ferritin 30.1 ng/mL (22-322) Folic Acid 9.88 ng/mL (>5.38) Thyroid Stimulating Hormone (TSH) 1.99 uIU/mL (0.55-4.78) Lactic Acid Level 1.1 mmol/L (0.4-2.0) Plasma/Serum Blood Alcohol < 3.0 mg/dL (<10) Urine Color Colorless (Yellow) Urine Clarity Turbid (Clear) Urine pH 5.5 (5.0-9.0) Urine Specific [place] 1.021 (1.001-1.035) Urine Protein Trace (Negative) Urine Ketones Negative (Negative) Urine Blood Negative /uL (Negative) Urine Nitrite 2+ (Negative) Urine Bilirubin Negative (Negative) Urine Urobilinogen Normal mg/dL (Negative) Urine Leukocyte Esterase 2+ /uL (Negative) Urine RBC 22 /hpf (0 - 3) Urine WBC Clumps Present /hpf (None Seen) Urine Microscopic WBC 483 /HPF (0-3) Urine Squamous Epithelial Cells Few /hpf (<5) Urine Bacteria Many /hpf (None Seen) Urine Glucose Normal mg/dL (Normal) Urine Opiates Screen Pos (NEGATIVE) Urine Fentanyl Screen Neg (NEGATIVE) Urine Barbiturates Screen Neg (NEGATIVE) Urine Phencyclidine Screen Neg (NEGATIVE) Urine Amphetamines Screen Neg (NEGATIVE) Urine Benzodiazepines Screen Neg (NEGATIVE) Urine Cocaine Screen Neg (NEGATIVE) Urine Cannabinoids Screen Neg (NEGATIVE) Test 04/07/25 21:54 Iron Level 95 ug/dL (65-175) Total Iron Binding Capacity 282 ug/dL (250-425) Percent Iron Saturation 33.7 % (20-55) Direct Bilirubin < 0.1 mg/dL (<0.3) Troponin I High Sensitivity 7 ng/L (</=54) Vitamin B12 Level 269 pg/mL (211-911) Other Laboratory Tests 04/11/25 04:46 Brief Hx & Hospital Course: Shaan Dupont, 74-year-old male with a previous history of paraplegia, significant alcohol abuse, chronic leg and back pain, cervical spinal surgery, recent history of UTI (resolved) presented to the to the ER after feeling hot flashes and his blood pressure at home was ranging in 60s/30s. According to the patient's spouse" he is not like normal, something is off". However, patient is A&O x3. The patient also reports having a wound in the right buttock. The patient did not have a bowel movement since last 10 days, the reports lactulose, MiraLax help to some extent. The patient receive home health services, spinal surgery team arranged by [facility]. Now, the is the primary caregiver. He denies any chest pain, shortness of breath, fever, urinary symptoms or any other complaints. As per patient patient had hot flashes, was feeling disoriented, states he did not lose consciousness and he did have trouble urinating since 2 days. Patient also was constipated since 9 days. Past surgical history: Cervical spine surgery Home medications: Hydrocodone, baclofen, ibuprofen Drug allergies: None Smoking: Quit many years ago. Previously taken 2 packs per day for many years Alcohol: 2-3 beers per day Drug abuse: None Code status: DNI, not DNR Brief hospital course: Patient came to the hospital with low blood pressure. Patient has septic shock likely due to complicated UTI, IV fluid boluses were given, patient was started on Levophed nd was weaned off successfully. IV Zosyn was started, patient also had pneumonia possibly due to Gram-positive vs Gram-negative chest x-ray showed Increased interstitial prominence. This may represent pulmonary vascular congestion and/or viral pneumonia. patient had acute complicated UTI for which urinalysis was positive for UTI, urine culture was ordered which showed no growth. And patient continued on IV Zosyn. Patient had severe anemia, possible GI bleed, slow transit constipation, abdomen CT showed colitis, impacted stool. Rectal exam was declined by the patient, 1 blood transfusion was given, we monitored H and H, GI consulted for possible GI bleed. EGD was done and showed Moderate linear antral gastritis with pre-pyloric antral gastric erosions and some scarring from previous ulcer disease . [id number]-crmdeccc duodenitis with duodenal erosions otherwise normal examination up to the 2nd and 3rd part of the duodenum. lactulose was given for constipation and GI cleared for patient's discharge. patient has history of paraplegia, hypokalemia, sacral ulcer present on admission, right foot ulcer present on admission podiatry was consulted and wound consult was placed, wound culture showed Pseudomonas aeruginosa, Providencia stuartii. ID was consulted for decision of p.o. antibiotics. patient has alcohol abuse disorder for which patient was counseled to cessation of alcohol for more than 18 minutes. Patient is stable for discharge and will have transportation arranged by himself. Patient understood discharge plan and has agreed. Patient is to follow-up with discharge Clinic and PCP in 1 week. General: Patient alert and oriented in person, place and time. Patient following commands. HEENT: Normocephalic, atraumatic, moist mucous membranes Respiratory/pulmonary: Clear lungs bilaterally, vesicular murmurs present in almost all lung alfaro, no associated crackles or wheezes. Cardiovascular: Normal heart sounds S1 and S2 with no associated murmurs Abdomen: rectal exam declined, no tenderness on palpation of abdomen. Extremities: There is no peripheral edema present at the lower extremities. Peripheral Pulses: 3+ Radial (R). 3+ Radial (L). 3+ Dorsalis pedis (R). 3+ Dorsalis pedis(L) Skin: sacral ulcer stage 3-4 present on admission, right big toe ulcer Patient is to take ciprofloxacin 500 b.i.d. for 10 days Pantoprazole Sucralfate Operations or Procedures ORDERING PHYSICIAN: DILLAN MARIN MD PROCEDURE(s): ABPL - CT AB PEL WO CON-NO ORAL OR IV REASON: Constipation.. No bowel movement x9 days ORDER NUMBER(s): [id number], ACCESSION NUMBER(s): [id number] Exam: CT CT AB PEL WO CON-NO ORAL OR IV History: Constipation.. No bowel movement x9 days Comparison Study: None TECHNIQUE: Multidetector CT of the abdomen and pelvis was performed from lung bases to pubic symphysis. Imaging was performed without IV contrast. Axial, coronal, and sagittal multiplanar reformats were obtained from the axial data set by the technologist. RADIATION DOSE: CTDI vol 18.1 mGy. DLP 944.2 mGy.cm Findings: Limited evaluation of the solid organs in the absence of IV contrast. Lungs: Basilar atelectasis/scarring. Liver: Unremarkable. Spleen: Unremarkable. Pancreas: Unremarkable. Gallbladder: Unremarkable. Adrenals: Unremarkable Kidneys: The left kidney is absent. The right kidney is unremarkable without hydronephrosis. Pelvic Viscera: Unremarkable. Vasculature: Atherosclerotic aortoiliac calcification. Retroperitoneum: Unremarkable. Bowel: There is fecal distention of the rectum with mild stranding about the inferior rectum. There is no bowel obstruction. The appendix is normal. Musculoskeletal: Degenerative changes of the osseous structures. Osteopenia. Soft tissues: There is stranding within the subcutaneous tissues overlying the rectum. There is mild subcutaneous stranding along the lateral aspect of the upper extremities. Impression: 1. Findings suggestive of fecal impaction with possible early stercoral colitis in the appropriate clinical setting. 2. Soft tissue stranding as above, infectious/ inflammatory process cannot be excluded in the appropriate clinical setting. 3. Additional findings as detailed. ATED BY: NISHANT SHARMA MD DICTATED DATE/TIME: 04/07/25 3330 SIGNED BY: NISHANT SHARMA MD SIGNED DATE/TIME: 04/07/25 5450 CC: ORDERING PHYSICIAN: GABY BRADEN PROCEDURE(s): CXR1 - CHEST XRAY 1 VIEW REASON: Sepsis ORDER NUMBER(s): [id number], ACCESSION NUMBER(s): [id number] CHEST RADIOGRAPH Indication: Sepsis Technique: Single frontal view of the chest was obtained COMPARISON: None FINDINGS: Lines and Tubes: None Lungs: Increased interstitial prominence. This may represent pulmonary vascular congestion and/or viral pneumonia. Pleura: No effusion. No pneumothorax. Cardiomediastinal contours: Unremarkable Bones: Unremarkable IMPRESSION: Increased interstitial prominence. This may represent pulmonary vascular congestion and/or viral pneumonia. ATED BY: BASHIR FLORES MD DICTATED DATE/TIME: 04/08/25518 SIGNED BY: BASHIR FLORES MD SIGNED DATE/TIME: 04/08/25518 Condition at Discharge: Stable Final Diagnosis/Problems List Septic shock likely due to UTI Pneumonia Gram-positive vs Gram-negative Complicated UTI Acute severe anemia GI bleed Slow transit Constipation History of for paraplegia Hypokalemia Ulcer in the gluteal region present on admission Alcohol abuse disorder Discharge Disposition: Home Discharge Instruct/Medications Diet: Consistent carbohydrate Activity: No Restrictions, As Tolerated Follow Up/Referral: Follow-up with discharge Clinic Follow-up with PCP Medications: as per eMR Scheduled Cefpodoxime Proxetil (Cefpodoxime Proxetil), 1 TAB PO BID Ciprofloxacin Hcl (Ciprofloxacin Hcl), 1 TAB PO BID Pantoprazole Sodium Sesquihydr (Pantoprazole Sodium), 40 MG PO BID Sucralfate (Carafate Susp), 1 GM PO QIDACHS Discharge Statement: "Patient was advised to return to the ER or call 911 if any headaches, dizziness, shortness of breath, chest pain, abdominal pain, bleeding, fevers, or worsening of medical condition. Patient was counseled about treatment plan, medications, possible side effects, patientverbalized understanding. All questions were answered to the best of my ability. This discharge took greater then 30 minutes in planning, reviewing documentation, counseling the patient, and discussing with other team members." ASSESSMENT ASSESSMENT Assessment Septic shock Date of Service: Apr 11, 2025 Billing Provider: PAOLA URIBE MD Common Visit Codes: 91326-RSA/OBS DISCH DAY >30min LEA HENDERSON RESIDENT Apr 11, 2025 16:14 PAOLA URIBE MD Apr 11, 2025 22:28
[2025-04-11] MEDS ORDERED: CEFP200T15 PO (17:28)
[2025-04-12 01:00] VITALS: BP 104/58; PULSE 69; RESP 18; TEMP 98.2; O2SAT 95
[2025-04-12 05:00] VITALS: BP 118/63; PULSE 73; RESP 18; TEMP 98.4; O2SAT 96
[2025-04-12 08:00] VITALS: PULSE 71; RESP 17; O2SAT 96
[2025-04-12 09:00] VITALS: BP 136/75; PULSE 71; RESP 17; TEMP 98.7; O2SAT 96
[2025-04-12 11:33] LABS: Chloride 106 mmol/L (98-107); Sodium 142 mmol/L (136-145)
[2025-04-12 11:34] LABS: Anion Gap 8 (5-15); Carbon Dioxide 28 mmol/L (20-31)
[2025-04-12 11:39] LABS: BUN/Creatinine Ratio 16.4 (10.0-20.0); Blood Urea Nitrogen 9 mg/dL (9-23); Glucose 83 mg/dL (74-106)
[2025-04-12 11:46] LABS: Calcium 8.4 mg/dL (8.7-10.4); Potassium 3.4 mmol/L (3.5-5.1)
[2025-04-12] MEDS: POTASSIUM EFFERVESENT TAB 25 MEQ PO ONE (13:45)
--- NOTE | 2025-04-12 13:48 | DVHPN2 ---
Progress Note Date Seen: Apr 12, 2025 Resident Creating Document: WHITNEY BORRERO RESIDENT Medical Necessity Reason Pt with a Central, PICC or Fol: No Subjective Review of Systems Patient seen and examined, no acute complaint. Objective vital signs Vital Sign Date Time Temp Pulse Resp B/P (MAP) Pulse Ox O2 Delivery O2 Flow Rate FiO2 04/12/25 09:00 98.7 71 17 136/75 (95) 96 98.7 04/12/25 08:00 Room Air* 0 21 Total Intake and Output 04/11/25 04/11/25 04/12/25 15:00 23:00 07:00 Intake Total 680 ml 125 ml Output Total 325 ml 308 ml Balance 355 ml -183 ml medications Current Medications Medications Dose Ordered Sig/Renate Route Start Time Stop Time Status Last Admin Dose Admin Cyanocobalamin 500 mcg DAILY PO 04/08/25 10:00 04/12/25 10:32 500 MCG Pantoprazole Sodium 40 mg BID IV 04/08/25 10:00 04/12/25 10:32 40 MG Lactulose 30 ml BID PO 04/08/25 22:00 Sucralfate 1 gm QIDACHS PO 04/09/25 17:00 04/12/25 06:13 1 GM Iron Sucrose 110 ml @ 110 mls/hr DAILY@1200 IV 04/10/25 12:00 04/13/25 13:00 04/12/25 13:28 110 MLS/HR Baclofen 5 mg Q8HP PRN PO 04/10/25 06:30 04/11/25 10:07 5 MG Potassium Bicarbonate 25 meq DAILY PO 04/10/25 10:00 04/12/25 10:32 25 MEQ Acetaminophen/ Hydrocodone Bitart 1 tab Q4HP PRN PO 04/10/25 10:15 04/12/25 10:32 1 TAB Acetaminophen 650 mg Q6HP PRN PO 04/10/25 11:15 Piperacillin Sod/ Tazobactam Sod 100 ml @ 25 mls/hr Q8H IV 04/10/25 23:00 04/12/25 06:13 25 MLS/HR Examination Patient lying in bed, in no acute distress General: Well-built, afebrile, palor, mucosae are moist Cardiovascular: Regular S1 and S2. No murmurs, gallops or rubs. No JVD elevation. No pedal edema Respiratory: Normal B/L air entry on room air. Clear lung sounds on auscultation Abdomen: Soft, nontender, nondistended, normoactive bowel sounds, no rebound tenderness, no organomegaly, no masses Genitourinary: Deferred Psych/Mental Status: A/Ox3 laboratory and microbiology Laboratory Tests 04/12/25 10:44 04/11/25 04:46 Test 04/12/25 10:44 Range/Units Serum Glucose 83 74-106 mg/dL Microbiology Date/Time Source Procedure Growth Status 04/08/25 17:20 Buttock Gram Stain - Final Complete 04/08/25 17:20 Wound Culture - Final Pseudomonas aeruginosa Providencia staurtii Escherichia coli Complete 04/08/25 12:31 Voided Urine Urine Culture - Final Complete 04/08/25 00:18 Blood Blood Culture - Preliminary NO GROWTH AFTER 72 HOURS OF INCUBATION. Resulted Labs and/or images reviewed: Labs reviewed by me, Image(s) reviewed by me Problem List/Assessment/Plan Problem List/Assessment/Plan Septic shock likely secondary to colitis Fecal impaction Moderate antral gastritis Jdhg-sh-mmkadpyr duodenitis Acute blood loss anemia likely secondary to above status post 1 RBC transfusion Acute urinary tract infection Alcohol dependence Protein malnutrition CT abdomen shows findings suggestive of fecal infection with possible early stercoral colitis in an appropriate clinical setting Soft tissue stranding as above. POSTOPERATIVE DIAGNOSES: 1. Moderate linear antral gastritis with pre-pyloric antral gastric erosions and some scarring from previous ulcer disease 2. Fjhj-xu-pbqklgxo duodenitis with duodenal erosions otherwise normal examination up to the 2nd and 3rd part of the duodenum Plan/Recommendation H&H stable. Patient is going home. Follow up with GI as outpatient for biopsy results. Continue Protonix 40 mg twice daily. Carafate suspension 1 g p.o. 4 times a day. DC aspirin NSAIDs smoking and alcohol. Patient is stable to be discharged from GI point of view Fleet enema ordered, rectal impaction or performed, large amount of stool burden was evacuated. Lactulose increased to 30 mL b.i.d. Thank you for consulting GI Plan discussed with patient in which all questions have been answered Case discussed with Dr. Beverly Plan discussed with: Patient WHITNEY BORRERO RESIDENT Apr 12, 2025 13:48
[2025-04-13] MEDS ORDERED: MULTIPLE VITAMIN TAB ONE (10:29)
[2025-04-13] MEDS ORDERED: CALCIUM W/VIT D (600MG/400IU) TAB ONE (10:29)
--- NOTE | 2025-04-13 23:18 | DVHPN2 ---
Consult Progress Note Objective vital signs Vital Sign Date Time Temp Pulse Resp B/P (MAP) Pulse Ox O2 Delivery O2 Flow Rate FiO2 04/12/25 09:00 98.7 71 17 136/75 (95) 96 98.7 04/12/25 08:00 Room Air* 0 21 laboratory and microbiology Laboratory Tests 04/12/25 10:44 04/11/25 04:46 Test 04/12/25 10:44 Range/Units Serum Glucose 83 74-106 mg/dL AGGIE DIAMOND MD Apr 13, 2025 23:18
== END 2025-04-12 14:45 | disposition home or self-care (01) | DRG 871 ==
LOC: EDBD 20:02 → ER 20:02 → OVERFLOW 23:26 → TELE-CENTR 04-09 13:47 → CENTRAL 04-11 05:43
PROVIDERS: ADMIT Internal Medicine; ATTEND Internal Medicine
PROC: 30233N1 Transfusion of Nonautologous Red Blood Cells into Peripheral Vein, Percutaneous Approach (ICD-10-PCS; 2025-04-08)
PROC: 0DB68ZX Excision of Stomach, Via Natural or Artificial Opening Endoscopic, Diagnostic (ICD-10-PCS; 2025-04-09)
PROC: 0DB98ZX Excision of Duodenum, Via Natural or Artificial Opening Endoscopic, Diagnostic (ICD-10-PCS; principal; 2025-04-09 15:45)
DX: A41.50 Gram-negative sepsis, unspecified (principal); J15.69 Pneumonia due to other Gram-negative bacteria; L89.154 Pressure ulcer of sacral region, stage 4; R65.21 Severe sepsis with septic shock; J15.9 Unspecified bacterial pneumonia; E46 Unspecified protein-calorie malnutrition; D62 Acute posthemorrhagic anemia; Z66 Do not resuscitate; K26.9 Duodenal ulcer, unspecified as acute or chronic, without hemorrhage or perforation; N39.0 Urinary tract infection, site not specified; L03.317 Cellulitis of buttock; F10.20 Alcohol dependence, uncomplicated; I10 Essential (primary) hypertension; K29.80 Duodenitis without bleeding; Z20.822 Contact with and (suspected) exposure to COVID-19; K52.9 Noninfective gastroenteritis and colitis, unspecified; K56.41 Fecal impaction; E87.6 Hypokalemia; G89.29 Other chronic pain; K29.70 Gastritis, unspecified, without bleeding; Z82.5 Family history of asthma and other chronic lower respiratory diseases; Z99.3 Dependence on wheelchair; Z87.891 Personal history of nicotine dependence; Z74.01 Bed confinement status; Z68.25 Body mass index [BMI] 25.0-25.9, adult; Y90.0 Blood alcohol level of less than 20 mg/100 ml
CPT/HCPCS: 36415; 43239; 71045; 74176; 80048; 80053; 80076; 80307; 80320; 81001; 82270; 82607; 82728; 82746; 83540; 83550; 83605; 83880; 84443; 84484; 85014; 85018; 85025; 85610; 85730; 86850; 86900; 86901; 86920; 87040; 87077; 87081; 87086; 87186; 87205; 87426; 87804; 93005; 96365; G0378; J1756; J2250; J2470; J2543; J3490